=== PATIENT | male | born 1985 | race African-American/Black ===

== ENCOUNTER 2016-12-05 12:54 | Emergency (ER) | payer MEDICAID, OTHER ==
[~2016-12-05] VITALS: Ht 180.3 cm; Wt 120.0 kg
[~2016-12-05 12:54] MED LIST: LISI10TA5 PO; METF500T PO
[2016-12-05] MEDS ORDERED: SODIUM CHLORIDE 0.9% 1,000 ML IV ONE (14:22)
[2016-12-05] MEDS ORDERED: KETOROLAC 30MG/ML VIAL IV STA (14:22)
[2016-12-05] MEDS ORDERED: ONDANSETRON HCL 4MG/2ML VIAL IV STA (14:22)
[2016-12-05 14:56] LABS: BASOPHILS % 0.6 % (0.0-2.0); EOSINOPHILS % 0.1 % (0.0-5.0); HEMATOCRIT. 42.2 % (42.0-52.0); HEMOGLOBIN. 14.3 g/dL (14.0-18.0); LYMPHOCYTES % 10.2 % (20.0-50.0); MEAN CORPUSCULAR HEMOGLOBIN 30.4 pg (28.0-32.0); MEAN CORPUSCULAR VOLUME 89.4 fL (80.0-94.0); MEAN PLATELET VOLUME 8.9 fl (7.4-10.4); MONOCYTES % 2.8 % (2.0-8.0); NEUTROPHILS % 86.3 % (40.0-76.0); PLATELET 255 x1000/uL (130-400); RED BLOOD CELL COUNT 4.71 mill/uL (4.7-6.1); RED CELL DISTRIBUTION WIDTH 14.1 % (11.6-14.6); WHITE BLOOD COUNT 12.3 x1000/uL (4.5-11.0)
[2016-12-05 14:59] LABS: PROTHROMBIN TIME 10.3 sec
[2016-12-05 15:01] LABS: CHLORIDE 103 mEq/L (98-107); INDEX HEMOLYSI 1 (1-3); INDEX ICTERIC 1 (1-4); INDEX LIPEMIC 1 (1-3)
[2016-12-05 15:07] LABS: ALANINE AMINOTRANSFERASE 21 IU/L (13-61); ALBUMIN 4.2 g/dL (3.4-5.0); ANION GAP 17; CALCIUM 9.5 mg/dL (8.5-10.1); CARBON DIOXIDE 24 mEq/L (21-32); LIPASE 194 IU/L (73-393); UREA NITROGEN BLOOD 17 mg/dL (7-21); eGFR > 60 mL/min (>60)
[2016-12-05 15:47] VITALS: BP 172/98
[2016-12-05] MEDS ORDERED: MAGNESIUM/ALUMINUM HYDROXIDE/SIMETHICONE 30ML UDC PO ONE (16:00)
== END 2016-12-05 16:48 | disposition home or self-care (01) ==
LOC: ER 13:09
DX: R10.9 Unspecified abdominal pain (principal); E11.9 Type 2 diabetes mellitus without complications; I10 Essential (primary) hypertension; R11.2 Nausea with vomiting, unspecified; Z90.49 Acquired absence of other specified parts of digestive tract
CPT/HCPCS: 36415; 74176; 80053; 83690; 85025; 85610; 96361; 96374; 96375; 99285; J1885; J2405; J7030; Z7610

== ENCOUNTER 2018-09-06 12:26 | Inpatient (IN) | payer MEDICAID ==
[~2018-09-06] VITALS: Ht 185.4 cm; Wt 117.9 kg
[2018-09-06] MEDS ORDERED: ACETAMINOPHEN 325MG TABLET PO ONE (20:00)
[2018-09-06] MEDS ORDERED: MORPHINE SULFATE 4 MG/ML CPJ (NOT FOR IM USE) IV ONE ×2 (20:45→22:30)
[2018-09-06] MEDS ORDERED: CLONIDINE 0.1MG TABLET PO ONE (20:45)
[2018-09-06] MEDS ORDERED: SODIUM CHLORIDE 0.9% 500 ML IV ONE (20:45)
[2018-09-06 20:55] LABS: CHLORIDE 97 mEq/L (98-107)
[2018-09-06 20:59] LABS: BASOPHILS % 0.2 % (0.0-2.0); EOSINOPHILS % 0.2 % (0.0-5.0); HEMATOCRIT. 47.4 % (42.0-52.0); HEMOGLOBIN. 15.5 g/dL (14.0-18.0); LYMPHOCYTES % 19.8 % (20.0-50.0); MEAN CORPUSCULAR HEMOGLOBIN 30.1 pg (28.0-32.0); MEAN CORPUSCULAR VOLUME 91.9 fL (80.0-94.0); MEAN PLATELET VOLUME 9.7 fl (7.4-10.4); MONOCYTES % 6.5 % (2.0-8.0); NEUTROPHILS % 73.3 % (40.0-76.0); PLATELET 251 x1000/uL (130-400); RED BLOOD CELL COUNT 5.16 mill/uL (4.7-6.1); RED CELL DISTRIBUTION WIDTH 13.1 % (11.6-14.6)
[2018-09-06] MEDS ORDERED: INSULIN REGULAR (HUMULIN R) 300UNITS/3ML SUBCUT ONE (21:45)
[2018-09-06] MEDS ORDERED: CLONIDINE 0.2MG TABLET PO ONE (22:15)
[2018-09-06] MEDS ORDERED: MAGNESIUM/ALUMINUM HYDROXIDE/SIMETHICONE 30ML UDC PO PRN (23:45)
[2018-09-06] MEDS ORDERED: IPRATROPIUM/ALBUTEROL 0.5-3(2.5)MG/3ML NEB INH PRN (23:45)
[2018-09-06] MEDS ORDERED: DOCUSATE SODIUM 100MG CAPSULE PO PRN (23:45)
[2018-09-06] MEDS ORDERED: ACETAMINOPHEN 325MG TABLET PO PRN (23:45)
[2018-09-07 05:13] LABS: BASOPHILS % 0.2 % (0.0-2.0); EOSINOPHILS % 0.7 % (0.0-5.0); HEMATOCRIT. 41.4 % (42.0-52.0); HEMOGLOBIN. 13.7 g/dL (14.0-18.0); LYMPHOCYTES % 21.7 % (20.0-50.0); MEAN CORPUSCULAR HEMOGLOBIN 30.3 pg (28.0-32.0); MEAN CORPUSCULAR VOLUME 91.5 fL (80.0-94.0); MEAN PLATELET VOLUME 9.1 fl (7.4-10.4); MONOCYTES % 8.5 % (2.0-8.0); NEUTROPHILS % 68.9 % (40.0-76.0); PLATELET 227 x1000/uL (130-400); RED BLOOD CELL COUNT 4.53 mill/uL (4.7-6.1); RED CELL DISTRIBUTION WIDTH 13.1 % (11.6-14.6)
[2018-09-07 05:26] LABS: LDL CHOLESTEROL 140 mg/dL (5-100)
[2018-09-07 05:29] LABS: CREATINE KINASE 121 IU/L (39-308)
[2018-09-07 05:30] LABS: HDL CHOLESTEROL 34 mg/dL (40-59)
[2018-09-07 05:31] LABS: CREATINE KINASE MB FRACTION < 1.0 ng/mL (0.5-3.6)
[2018-09-07] MEDS: SODIUM CHLORIDE 0.9% 1,000 ML IV SCH ×2 (06:13→16:38)
[2018-09-07 06:51] LABS: CLARITY URINE CLEAR (CLEAR); COLOR URINE YELLOW (YELLOW); KETONES URINE 2+ (NEGATIVE); LEUKOCYTE ESTERASE URINE NEGATIVE (NEGATIVE); NITRITE URINE NEGATIVE (NEGATIVE); OCCULT BLOOD URINE NEGATIVE (NEGATIVE); PROTEIN URINE 2+ (NEGATIVE); SPECIFIC GRAVITY URINE 1.023 (1.005-1.030); UROBILINOGEN URINE 0.2 E.U./dL (0.2-1.0)
[2018-09-07 07:08] LABS: *AMPHETAMINES SCREEN URINE NEGATIVE (NEGATIVE); *BARBITURATES SCREEN URINE NEGATIVE (NEGATIVE); *BENZODIAZEPINES SCREEN URINE NEGATIVE (NEGATIVE); *COCAINE SCREEN URINE PRESUMTIVE POSITIVE (NEGATIVE); METHADONE URINE SCREEN NEGATIVE (NEGATIVE); OPIATES URINE SCREEN PRESUMTIVE POSITIVE (NEGATIVE)
[2018-09-07 07:09] LABS: CANNABINOID URINE SCREEN PRESUMTIVE POSITIVE (NEGATIVE); PHENCYCLIDINE URINE SCREEN NEGATIVE (NEGATIVE)
[2018-09-07] MEDS: INSULIN LISPRO (HIGH DOSE) 100 UNITS/ML SUBCUT SCH ×5 (07:09→21:11)
[2018-09-07] MEDS: BLOOD SUGAR DIAGNOSTIC STRIP TEST SCH ×5 (07:10→20:33)
[2018-09-07] MEDS ORDERED: DEXTROSE 50% WATER 50ML SYRINGE IV PRN (07:15)
[2018-09-07] MEDS: CLONIDINE 0.1MG TABLET PO PRN ×2 (09:30→17:29)
[2018-09-07] MEDS: MORPHINE SULFATE 4 MG/ML CPJ (NOT FOR IM USE) IV PRN ×2 (09:30→22:35)
[2018-09-07] MEDS: ENOXAPARIN 30MG/0.3ML SYR SUBCUT SCH ×2 (09:34→21:10)
[2018-09-07 12:00] VITALS: BP 159/105
[2018-09-07 16:00] VITALS: BP 159/105
[2018-09-07] MEDS: HYDROCODONE/ACETAMINOPHEN 5/325MG TABLET PO PRN (16:17)
[2018-09-07 16:46] VITALS: BP 159/103
[2018-09-07 17:22] LABS: CREATINE KINASE 110 IU/L (39-308)
[2018-09-07 17:23] LABS: CREATINE KINASE MB FRACTION < 1.0 ng/mL (0.5-3.6)
[2018-09-07] MEDS: FAMOTIDINE 20MG TABLET PO SCH (21:10)
[2018-09-07] MEDS: ATORVASTATIN CALCIUM 20MG TABLET PO SCH (21:10)
[2018-09-07] MEDS: AMLODIPINE 5MG TABLET PO SCH (21:10)
[2018-09-07] MEDS ORDERED: INSULIN GLARGINE UD 100 UNITS/ML SYR SUBCUT SCH (22:00)
[2018-09-08 00:16] VITALS: BP 131/98
[2018-09-08] MEDS: SODIUM CHLORIDE 0.9% 1,000 ML IV SCH ×2 (03:47→16:26)
[2018-09-08] MEDS: MORPHINE SULFATE 4 MG/ML CPJ (NOT FOR IM USE) IV PRN ×4 (03:47→20:38)
[2018-09-08 04:00] VITALS: BP 130/97
[2018-09-08] MEDS: BLOOD SUGAR DIAGNOSTIC STRIP TEST SCH ×4 (06:30→20:29)
[2018-09-08 07:10] LABS: CHLORIDE 104 mEq/L (98-107)
[2018-09-08 07:12] LABS: BASOPHILS % 0.4 % (0.0-2.0); EOSINOPHILS % 1.6 % (0.0-5.0); HEMATOCRIT. 38.8 % (42.0-52.0); HEMOGLOBIN. 12.9 g/dL (14.0-18.0); LYMPHOCYTES % 34.1 % (20.0-50.0); MEAN CORPUSCULAR HEMOGLOBIN 30.2 pg (28.0-32.0); MEAN CORPUSCULAR VOLUME 91.1 fL (80.0-94.0); MEAN PLATELET VOLUME 9.6 fl (7.4-10.4); MONOCYTES % 8.6 % (2.0-8.0); NEUTROPHILS % 55.3 % (40.0-76.0); PLATELET 225 x1000/uL (130-400); RED BLOOD CELL COUNT 4.26 mill/uL (4.7-6.1); RED CELL DISTRIBUTION WIDTH 13.3 % (11.6-14.6)
[2018-09-08 08:00] VITALS: BP 157/106
[2018-09-08] MEDS: INSULIN LISPRO (HIGH DOSE) 100 UNITS/ML SUBCUT SCH ×3 (08:37→20:36)
[2018-09-08] MEDS: AMLODIPINE 5MG TABLET PO SCH ×2 (08:39→20:37)
[2018-09-08] MEDS: ENOXAPARIN 30MG/0.3ML SYR SUBCUT SCH ×2 (08:39→20:37)
[2018-09-08] MEDS: HYDROCODONE/ACETAMINOPHEN 5/325MG TABLET PO PRN ×2 (08:40→19:38)
[2018-09-08 12:00] VITALS: BP 173/132
[2018-09-08] MEDS: CLONIDINE 0.1MG TABLET PO PRN (12:51)
[2018-09-08 16:00] VITALS: BP 164/121
[2018-09-08 20:00] VITALS: BP 159/113
[2018-09-08] MEDS: FAMOTIDINE 20MG TABLET PO SCH (20:37)
[2018-09-08] MEDS: ATORVASTATIN CALCIUM 20MG TABLET PO SCH (20:37)
[2018-09-08] MEDS: INSULIN GLARGINE UD 100 UNITS/ML SYR SUBCUT SCH (23:35)
[2018-09-09] VITALS (7 sets, daily range): BP systolic 139–163; BP diastolic 85–105
[2018-09-09] MEDS: MORPHINE SULFATE 4 MG/ML CPJ (NOT FOR IM USE) IV PRN ×3 (02:45→20:03)
[2018-09-09] MEDS: SODIUM CHLORIDE 0.9% 1,000 ML IV SCH ×2 (02:46→17:43)
[2018-09-09 06:34] LABS: CHLORIDE 103 mEq/L (98-107)
[2018-09-09] MEDS: BLOOD SUGAR DIAGNOSTIC STRIP TEST SCH ×4 (06:44→20:37)
[2018-09-09 06:58] LABS: BASOPHILS % 0.3 % (0.0-2.0); EOSINOPHILS % 1.9 % (0.0-5.0); HEMATOCRIT. 37.4 % (42.0-52.0); HEMOGLOBIN. 12.6 g/dL (14.0-18.0); LYMPHOCYTES % 38.4 % (20.0-50.0); MEAN CORPUSCULAR HEMOGLOBIN 30.6 pg (28.0-32.0); MEAN CORPUSCULAR VOLUME 90.7 fL (80.0-94.0); MEAN PLATELET VOLUME 9.3 fl (7.4-10.4); MONOCYTES % 8.1 % (2.0-8.0); NEUTROPHILS % 51.3 % (40.0-76.0); PLATELET 235 x1000/uL (130-400); RED BLOOD CELL COUNT 4.13 mill/uL (4.7-6.1); RED CELL DISTRIBUTION WIDTH 12.8 % (11.6-14.6)
[2018-09-09] MEDS: INSULIN LISPRO (HIGH DOSE) 100 UNITS/ML SUBCUT SCH ×4 (08:10→20:37)
[2018-09-09] MEDS: AMLODIPINE 5MG TABLET PO SCH ×2 (08:59→20:02)
[2018-09-09] MEDS: ENOXAPARIN 30MG/0.3ML SYR SUBCUT SCH ×2 (12:30→20:47)
[2018-09-09] MEDS: ATORVASTATIN CALCIUM 20MG TABLET PO SCH (20:02)
[2018-09-09] MEDS: FAMOTIDINE 20MG TABLET PO SCH (20:46)
[2018-09-09] MEDS: INSULIN GLARGINE UD 100 UNITS/ML SYR SUBCUT SCH (20:46)
[2018-09-10] VITALS: BP 150/104
[2018-09-10] MEDS: SODIUM CHLORIDE 0.9% 1,000 ML IV SCH ×2 (00:12→11:19)
[2018-09-10] MEDS: MORPHINE SULFATE 4 MG/ML CPJ (NOT FOR IM USE) IV PRN ×5 (00:23→21:55)
[2018-09-10 04:00] VITALS: BP 152/105
[2018-09-10 06:51] LABS: BASOPHILS % 0.4 % (0.0-2.0); EOSINOPHILS % 1.9 % (0.0-5.0); HEMATOCRIT. 38.5 % (42.0-52.0); HEMOGLOBIN. 12.7 g/dL (14.0-18.0); MEAN CORPUSCULAR HEMOGLOBIN 29.9 pg (28.0-32.0); MEAN CORPUSCULAR VOLUME 90.5 fL (80.0-94.0); MEAN PLATELET VOLUME 9.2 fl (7.4-10.4); NEUTROPHILS % 56.7 % (40.0-76.0); PLATELET 250 x1000/uL (130-400); RED BLOOD CELL COUNT 4.25 mill/uL (4.7-6.1); RED CELL DISTRIBUTION WIDTH 12.8 % (11.6-14.6)
[2018-09-10 07:17] LABS: CHLORIDE 105 mEq/L (98-107)
[2018-09-10] MEDS: BLOOD SUGAR DIAGNOSTIC STRIP TEST SCH ×4 (07:31→20:53)
[2018-09-10] MEDS: INSULIN LISPRO (HIGH DOSE) 100 UNITS/ML SUBCUT SCH ×4 (07:51→20:53)
[2018-09-10 08:00] VITALS: BP 163/100
[2018-09-10] MEDS: CLONIDINE 0.1MG TABLET PO PRN (08:15)
[2018-09-10] MEDS: ENOXAPARIN 30MG/0.3ML SYR SUBCUT SCH ×2 (09:00→20:53)
[2018-09-10] MEDS: AMLODIPINE 5MG TABLET PO SCH ×2 (09:00→20:52)
[2018-09-10] MEDS ORDERED: BUPIVACAINE HCL/PF 0.25% (2.5MG/ML) 10ML ONE (11:00)
[2018-09-10] MEDS ORDERED: VANCOMYCIN HCL 500 MG/VIAL ONE (11:01)
[2018-09-10] MEDS ORDERED: BACITRACIN 50,000 UNITS/VIAL ONE (11:01)
[2018-09-10] MEDS ORDERED: NORMAL SALINE 0.9% 10 ML SYR ONE (11:01)
[2018-09-10] MEDS ORDERED: FENTANYL CITRATE/PF 50MCG/ML 2ML VIAL ONE ×3 (11:31→13:30)
[2018-09-10] MEDS ORDERED: MIDAZOLAM HCL 2 MG/2 ML VIAL ONE (11:31)
[2018-09-10] MEDS ORDERED: PROPOFOL 200MG/20ML VIAL IV ONE (11:31)
[2018-09-10] MEDS ORDERED: LIDOCAINE HCL/PF 1% 10 MG/ML 5ML VIAL ONE (11:31)
[2018-09-10] MEDS ORDERED: CEFAZOLIN SODIUM 1000MG/VIAL ONE (11:32)
[2018-09-10] MEDS ORDERED: ROCURONIUM BROMIDE 10MG/ML VIAL 5ML IV ONE (11:52)
[2018-09-10] MEDS ORDERED: ONDANSETRON HCL 4MG/2ML INJ ONE (12:39)
[2018-09-10] MEDS: HYDROMORPHONE HCL/PF 2MG/ML CPJ IV PRN ×4 (13:08→13:23)
[2018-09-10] MEDS ORDERED: HYDROMORPHONE HCL/PF 2MG/ML CPJ ONE (13:14)
[2018-09-10] MEDS ORDERED: BUPIVACAINE HCL/PF 0.5% (5MG/ML) 10ML ONE (13:17)
[2018-09-10] MEDS: FENTANYL CITRATE/PF 50MCG/ML 2ML VIAL IV PRN ×2 (13:23→13:33)
[2018-09-10] MEDS ORDERED: MIDAZOLAM HCL 5 MG/5 ML VIAL ONE (13:33)
[2018-09-10] MEDS ORDERED: MIDAZOLAM HCL 5 MG/5 ML VIAL IV SCH (13:45)
[2018-09-10] MEDS ORDERED: MEPERIDINE HCL/PF 25MG/ML CPJ IV PRN (13:45)
[2018-09-10] MEDS ORDERED: KETOROLAC 30MG/ML VIAL IV PRN (13:45)
[2018-09-10] MEDS ORDERED: HYDROMORPHONE HCL/PF 2MG/ML CPJ IV PRN (13:45)
[2018-09-10] MEDS ORDERED: METOCLOPRAMIDE HCL 10MG/2ML VIAL IV PRN (13:45)
[2018-09-10] MEDS ORDERED: CEFAZOLIN SODIUM 1000MG/VIAL IV SCH (14:00)
[2018-09-10 16:00] VITALS: BP 152/95
[2018-09-10] MEDS: CEFAZOLIN 1000MG PREMIX 50 ML IV SCH (16:08)
[2018-09-10] MEDS: ONDANSETRON HCL 4MG/2ML INJ IV PRN (19:29)
[2018-09-10 20:00] VITALS: BP 144/89
[2018-09-10] MEDS: FAMOTIDINE 20MG TABLET PO SCH (20:52)
[2018-09-10] MEDS: ATORVASTATIN CALCIUM 20MG TABLET PO SCH (20:52)
[2018-09-10] MEDS: INSULIN GLARGINE UD 100 UNITS/ML SYR SUBCUT SCH (20:54)
[2018-09-11] VITALS: BP 155/100
[2018-09-11] MEDS: SODIUM CHLORIDE 0.9% 1,000 ML IV SCH ×3 (00:04→23:50)
[2018-09-11] MEDS: CEFAZOLIN 1000MG PREMIX 50 ML IV SCH ×2 (00:05→08:34)
[2018-09-11] MEDS: MORPHINE SULFATE 4 MG/ML CPJ (NOT FOR IM USE) IV PRN ×6 (02:23→23:51)
[2018-09-11] MEDS: ONDANSETRON HCL 4MG/2ML INJ IV PRN (02:23)
[2018-09-11 04:00] VITALS: BP 154/92
[2018-09-11] MEDS: BLOOD SUGAR DIAGNOSTIC STRIP TEST SCH ×4 (06:57→21:11)
[2018-09-11 08:00] VITALS: BP 157/94
[2018-09-11] MEDS: INSULIN LISPRO (HIGH DOSE) 100 UNITS/ML SUBCUT SCH ×4 (08:10→21:12)
[2018-09-11] MEDS: AMLODIPINE 5MG TABLET PO SCH ×2 (08:32→21:11)
[2018-09-11] MEDS: ENOXAPARIN 30MG/0.3ML SYR SUBCUT SCH ×2 (08:32→21:11)
[2018-09-11] MEDS: HYDROCODONE/ACETAMINOPHEN 5/325MG TABLET PO PRN ×4 (08:34→21:55)
[2018-09-11 08:51] LABS: BASOPHILS % 0.2 % (0.0-2.0); EOSINOPHILS % 0.2 % (0.0-5.0); HEMATOCRIT. 37.3 % (42.0-52.0); HEMOGLOBIN. 12.4 g/dL (14.0-18.0); LYMPHOCYTES % 14.9 % (20.0-50.0); MEAN CORPUSCULAR HEMOGLOBIN 30.2 pg (28.0-32.0); MEAN CORPUSCULAR VOLUME 91.1 fL (80.0-94.0); MEAN PLATELET VOLUME 9.3 fl (7.4-10.4); NEUTROPHILS % 76.7 % (40.0-76.0); PLATELET 266 x1000/uL (130-400); RED CELL DISTRIBUTION WIDTH 12.9 % (11.6-14.6)
[2018-09-11 09:28] LABS: CHLORIDE 104 mEq/L (98-107)
[2018-09-11 12:00] VITALS: BP 146/94
[2018-09-11 16:00] VITALS: BP 136/93
[2018-09-11 20:00] VITALS: BP 152/87
[2018-09-11] MEDS: FAMOTIDINE 20MG TABLET PO SCH (21:11)
[2018-09-11] MEDS: ATORVASTATIN CALCIUM 20MG TABLET PO SCH (21:11)
[2018-09-11] MEDS: INSULIN GLARGINE UD 100 UNITS/ML SYR SUBCUT SCH (21:12)
[2018-09-12] VITALS: BP 148/78
[2018-09-12 03:53] VITALS: BP 156/99
[2018-09-12] MEDS: MORPHINE SULFATE 4 MG/ML CPJ (NOT FOR IM USE) IV PRN ×4 (03:54→16:45)
[2018-09-12] MEDS: HYDROCODONE/ACETAMINOPHEN 5/325MG TABLET PO PRN ×2 (06:04→14:24)
[2018-09-12] MEDS: BLOOD SUGAR DIAGNOSTIC STRIP TEST SCH ×3 (07:33→16:47)
[2018-09-12] MEDS: SODIUM CHLORIDE 0.9% 1,000 ML IV SCH (08:38)
[2018-09-12 08:48] VITALS: BP 140/96
[2018-09-12] MEDS: INSULIN LISPRO (HIGH DOSE) 100 UNITS/ML SUBCUT SCH ×3 (08:55→17:22)
[2018-09-12] MEDS: AMLODIPINE 5MG TABLET PO SCH (09:09)
[2018-09-12] MEDS: ENOXAPARIN 30MG/0.3ML SYR SUBCUT SCH (09:09)
[2018-09-12 12:31] VITALS: BP 167/102
[2018-09-12] MEDS ORDERED: DOCUSATE SODIUM 250MG CAPSULE PO SCH (14:30)
[2018-09-12] MEDS ORDERED: LOSARTAN POTASSIUM 50 MG TABLET PO SCH (14:30)
[2018-09-12 16:06] VITALS: BP 159/99
[2018-09-12 16:45] VITALS: BP 159/99
== END 2018-09-12 17:46 | disposition home or self-care (01) | DRG 315 ==
LOC: ER 14:23 → 7WST 21:34 → EDBEDREQSVC 21:40 → EDBEDREQTM 21:40 → EDBEDREQ 21:40 → ENRESERV 09-07 08:40
PROVIDERS: ADMIT Internal Medicine; ATTEND Internal Medicine
PROC: 0PSH04Z Reposition Right Radius with Internal Fixation Device, Open Approach (ICD-10-PCS; principal; 2018-09-10)
DX: S52.501A Unspecified fracture of the lower end of right radius, initial encounter for closed fracture (principal); N17.9 Acute kidney failure, unspecified; E11.65 Type 2 diabetes mellitus with hyperglycemia; E87.1 Hypo-osmolality and hyponatremia; I16.0 Hypertensive urgency; K21.9 Gastro-esophageal reflux disease without esophagitis; F11.90 Opioid use, unspecified, uncomplicated; F14.90 Cocaine use, unspecified, uncomplicated; F12.90 Cannabis use, unspecified, uncomplicated; E78.5 Hyperlipidemia, unspecified; I10 Essential (primary) hypertension; W01.0XXA Fall on same level from slipping, tripping and stumbling without subsequent striking against object, initial encounter; Y93.89 Activity, other specified; Y99.8 Other external cause status; Y92.098 Other place in other non-institutional residence as the place of occurrence of the external cause; Z59.0 Homelessness; Z79.84 Long term (current) use of oral hypoglycemic drugs; Z90.49 Acquired absence of other specified parts of digestive tract; Z91.14 Patient's other noncompliance with medication regimen; Z79.899 Other long term (current) drug therapy
CPT/HCPCS: 36415; 71045; 73100; 73110; 73130; 76000; 76770; 80048; 80061; 80305; 82550; 82553; 82962; 83036; 83735; 83880; 84443; 84484; 93005; 93306; 93970; 96361; 96372; 96374; 99285; C1713; J0690; J1170; J1650; J1815; J1885; J2250; J2270; J2405; J2704; J3010; J3370; J3490; J7040

== ENCOUNTER 2019-12-09 05:47 | Inpatient (IN) | payer MEDICAID ==
[~2019-12-09] VITALS: Ht 190.5 cm; Wt 110.7 kg
[~2019-12-09 05:47] MED LIST changes: +CLON0.1T MT; +INSU100I28 SQ; -LISI10TA5 PO; +NEOAPJ IM
[2019-12-09] MEDS ORDERED: SODIUM CHLORIDE 0.9% 1,000 ML IV ONE (06:22)
[2019-12-09 06:27] LABS: BG BASE EXCESS 0.6 mmol/L (-2.0-2.0); BG CARBOXYHEMOGLOBIN 2.6 % (0.5-1.5); BG DEOXYHEMOGLOBIN 3.1 % (0.0-5.0); BG FRACTION INSPIRED OXYGEN 21; BG HCO3 ACT 24.1 mmol/L (22.0-26.0); BG METHEMOGLOBIN 0.1 % (0.0-1.5); BG OXYGEN SATURATION 96.8 % (92.0-98.5); BG OXYHEMOGLOBIN 94.2 % (94.0-97.0); BG PCO2 35.6 mmHg (35.0-45.0); BG PH 7.449 (7.350-7.450); BG PO2 87.3 mmHg (75.0-100.0); BG SAMPLE SITE RIGHT RADIAL; BG TOTAL HEMOGLOBIN 14.5 g/dL (12.0-18.0); BG VENT MODE ROOM AIR
[2019-12-09 06:28] LABS: CHLORIDE 102 mEq/L (98-107)
[2019-12-09 06:30] LABS: BASOPHILS % 0.3 % (0.0-2.0); EOSINOPHILS % 0.4 % (0.0-5.0); HEMATOCRIT. 42.3 % (42.0-52.0); HEMOGLOBIN. 14.2 g/dL (14.0-18.0); MEAN CORPUSCULAR HEMOGLOBIN 30.4 pg (28.0-32.0); MEAN CORPUSCULAR VOLUME 90.4 fL (80.0-94.0); MEAN PLATELET VOLUME 9.1 fl (7.4-10.4); NEUTROPHILS % 83.3 % (40.0-76.0); PLATELET 256 x1000/uL (130-400); RED BLOOD CELL COUNT 4.68 mill/uL (4.7-6.1); RED CELL DISTRIBUTION WIDTH 13.5 % (11.6-14.6)
[2019-12-09] MEDS ORDERED: ONDANSETRON HCL 4MG/2ML INJ IV ONE (06:30)
[2019-12-09 06:34] LABS: BETA HYDROXYBUTYRATE 1.4 mMol/L (0.0-0.3)
[2019-12-09] MEDS ORDERED: INSULIN REGULAR (HUMULIN R) 300UNITS/3ML IV ONE (06:45)
[2019-12-09] MEDS ORDERED: MORPHINE SULFATE 4 MG/ML CPJ (NOT FOR IM USE) IV ONE (07:45)
[2019-12-09] MEDS ORDERED: IPRATROPIUM/ALBUTEROL 0.5-3(2.5)MG/3ML NEB HHN PRN (10:00)
[2019-12-09] MEDS ORDERED: INSULIN REGULAR (HUMULIN R) 300UNITS/3ML SUBCUT NR (10:00)
[2019-12-09] MEDS: SODIUM CHLORIDE 0.9% 1,000 ML IV SCH ×2 (10:30→22:49)
[2019-12-09 10:57] LABS: PHOSPHORUS 2.6 mg/dL (2.5-4.9)
[2019-12-09] MEDS: CLONIDINE 0.1MG TABLET PO PRN ×2 (12:16→21:31)
[2019-12-09] MEDS: ENOXAPARIN 30MG/0.3ML SYR SUBCUT SCH (13:14)
[2019-12-09] MEDS: ONDANSETRON HCL 4MG/2ML INJ IV PRN ×2 (13:14→17:51)
[2019-12-09] MEDS: HYDROCHLOROTHIAZIDE 25MG TABLET PO SCH (16:11)
[2019-12-09] MEDS: ACETAMINOPHEN 325MG TABLET PO PRN ×2 (17:51→21:31)
[2019-12-09 17:52] VITALS: BP 216/130
[2019-12-09 20:00] VITALS: BP 165/85
[2019-12-10] VITALS: BP 159/89
[2019-12-10] MEDS ORDERED: DEXTROSE 50% WATER 50ML SYRINGE IV PRN (00:45)
[2019-12-10] MEDS: ENOXAPARIN 30MG/0.3ML SYR SUBCUT SCH ×3 (01:02→20:47)
[2019-12-10] MEDS: ONDANSETRON HCL 4MG/2ML INJ IV PRN ×3 (01:03→17:33)
[2019-12-10] MEDS: SODIUM CHLORIDE 0.9% 1,000 ML IV SCH ×2 (01:50→09:11)
[2019-12-10] MEDS: ACETAMINOPHEN 325MG TABLET PO PRN (02:06)
[2019-12-10 04:00] VITALS: BP 180/95
[2019-12-10] MEDS: CLONIDINE 0.1MG TABLET PO PRN ×2 (04:51→12:47)
[2019-12-10] MEDS: BLOOD SUGAR DIAGNOSTIC STRIP TEST SCH ×4 (06:12→20:47)
[2019-12-10] MEDS: INSULIN LISPRO 100 UNITS/ML SUBCUT SCH ×4 (06:43→22:51)
[2019-12-10 07:25] LABS: BASOPHILS % 0.5 % (0.0-2.0); HEMATOCRIT. 44.2 % (42.0-52.0); HEMOGLOBIN. 14.7 g/dL (14.0-18.0); LYMPHOCYTES % 8.9 % (20.0-50.0); MEAN CORPUSCULAR HEMOGLOBIN 30.3 pg (28.0-32.0); MEAN CORPUSCULAR VOLUME 90.8 fL (80.0-94.0); MEAN PLATELET VOLUME 10.1 fl (7.4-10.4); NEUTROPHILS % 87.6 % (40.0-76.0); PLATELET 269 x1000/uL (130-400); RED BLOOD CELL COUNT 4.87 mill/uL (4.7-6.1); RED CELL DISTRIBUTION WIDTH 13.7 % (11.6-14.6)
[2019-12-10 07:34] LABS: CHLORIDE 100 mEq/L (98-107)
[2019-12-10 07:40] LABS: LDL CHOLESTEROL 189 mg/dL (5-100)
[2019-12-10 07:41] LABS: HDL CHOLESTEROL 44 mg/dL (40-59)
[2019-12-10 08:00] VITALS: BP 202/115
[2019-12-10] MEDS: METFORMIN HCL 500MG TABLET PO SCH ×3 (09:08→17:19)
[2019-12-10] MEDS: HYDROCHLOROTHIAZIDE 25MG TABLET PO SCH (09:08)
[2019-12-10] MEDS: MORPHINE SULFATE 2 MG/ML CPJ (NOT FOR IM USE) IV PRN ×4 (09:12→22:51)
[2019-12-10 12:00] VITALS: BP 168/121
[2019-12-10 16:00] VITALS: BP 151/87
[2019-12-10] MEDS ORDERED: HYDRALAZINE 10 MG in SODIUM CHLORIDE 0.9% 49.5 ML IV SCH (16:00)
[2019-12-10 20:00] VITALS: BP 146/84
[2019-12-10] MEDS ORDERED: INSULIN GLARGINE UD 100 UNITS/ML SYR SUBCUT SCH (22:00)
[2019-12-11] VITALS: BP 153/86
[2019-12-11] MEDS: MORPHINE SULFATE 2 MG/ML CPJ (NOT FOR IM USE) IV PRN ×5 (03:27→23:10)
[2019-12-11 04:00] VITALS: BP 180/91
[2019-12-11] MEDS: CLONIDINE 0.1MG TABLET PO PRN ×3 (05:25→21:15)
[2019-12-11 06:16] LABS: CHLORIDE 95 mEq/L (98-107)
[2019-12-11 06:21] LABS: BASOPHILS % 0.3 % (0.0-2.0); HEMATOCRIT. 43.8 % (42.0-52.0); HEMOGLOBIN. 14.6 g/dL (14.0-18.0); LYMPHOCYTES % 10.3 % (20.0-50.0); MEAN CORPUSCULAR HEMOGLOBIN 30.6 pg (28.0-32.0); MEAN CORPUSCULAR VOLUME 91.6 fL (80.0-94.0); MEAN PLATELET VOLUME 10.3 fl (7.4-10.4); MONOCYTES % 4.7 % (2.0-8.0); NEUTROPHILS % 84.7 % (40.0-76.0); PLATELET 269 x1000/uL (130-400); RED BLOOD CELL COUNT 4.78 mill/uL (4.7-6.1); RED CELL DISTRIBUTION WIDTH 13.7 % (11.6-14.6)
[2019-12-11] MEDS: BLOOD SUGAR DIAGNOSTIC STRIP TEST SCH ×4 (07:06→21:14)
[2019-12-11] MEDS ORDERED: POTASSIUM CHLORIDE 20MEQ TABLET SR PO SCH (07:30)
[2019-12-11 08:00] VITALS: BP 150/90
[2019-12-11] MEDS: HYDROCHLOROTHIAZIDE 25MG TABLET PO SCH (08:21)
[2019-12-11] MEDS: METFORMIN HCL 500MG TABLET PO SCH ×2 (08:21→18:04)
[2019-12-11] MEDS: INSULIN LISPRO 100 UNITS/ML SUBCUT SCH ×4 (08:23→21:26)
[2019-12-11] MEDS: SODIUM CHLORIDE 0.9% 1,000 ML IV SCH ×2 (09:50→18:25)
[2019-12-11 12:00] VITALS: BP 184/96
[2019-12-11] MEDS: ENOXAPARIN 30MG/0.3ML SYR SUBCUT SCH (12:58)
[2019-12-11] MEDS: ONDANSETRON HCL 4MG/2ML INJ IV PRN ×2 (13:28→21:26)
[2019-12-11 16:00] VITALS: BP 148/110
[2019-12-11] MEDS ORDERED: ATOR20TA MT (16:59)
[2019-12-11 20:00] VITALS: BP 187/112
[2019-12-11] MEDS: INSULIN GLARGINE UD 100 UNITS/ML SYR SUBCUT SCH (22:00)
[2019-12-12] VITALS: BP_SYST 141; BP_SYST 177; BP_DIAS 117; BP_DIAS 82
[2019-12-12] MEDS: ENOXAPARIN 30MG/0.3ML SYR SUBCUT SCH ×2 (00:54→13:01)
[2019-12-12] MEDS: HYDRALAZINE 10 MG in SODIUM CHLORIDE 0.9% 49.5 ML IV PRN (00:54)
[2019-12-12] MEDS: MORPHINE SULFATE 2 MG/ML CPJ (NOT FOR IM USE) IV PRN ×2 (03:16→09:20)
[2019-12-12] MEDS: CLONIDINE 0.1MG TABLET PO PRN (03:22)
[2019-12-12] MEDS: ONDANSETRON HCL 4MG/2ML INJ IV PRN (03:30)
[2019-12-12 04:00] VITALS: BP 187/110
[2019-12-12] MEDS: BLOOD SUGAR DIAGNOSTIC STRIP TEST SCH ×4 (06:11→21:26)
[2019-12-12 08:00] VITALS: BP 165/102
[2019-12-12] MEDS: METFORMIN HCL 500MG TABLET PO SCH ×2 (09:11→17:34)
[2019-12-12] MEDS: HYDROCHLOROTHIAZIDE 25MG TABLET PO SCH (09:11)
[2019-12-12] MEDS: INSULIN LISPRO 100 UNITS/ML SUBCUT SCH ×5 (09:50→21:00)
[2019-12-12] MEDS: INSULIN GLARGINE UD 100 UNITS/ML SYR SUBCUT SCH ×2 (09:50→21:31)
[2019-12-12] MEDS: SODIUM CHLORIDE 0.9% 1,000 ML IV SCH (09:50)
[2019-12-12] MEDS ORDERED: CLONIDINE 0.1MG TABLET PO NR (11:15)
[2019-12-12 12:00] VITALS: BP 168/104
[2019-12-12] MEDS ORDERED: IOHEXOL-300 100 ML BOTTLE ONE (13:53)
[2019-12-12] MEDS: CLONIDINE 0.1MG TABLET PO SCH ×2 (15:24→21:27)
[2019-12-12 16:00] VITALS: BP 150/89
[2019-12-12] MEDS: METOCLOPRAMIDE HCL 10MG/2ML VIAL IV SCH ×2 (17:34→23:51)
[2019-12-12] MEDS ORDERED: KETOROLAC 30MG/ML VIAL IV PRN (18:00)
[2019-12-12] MEDS: HYDROCODONE/ACETAMINOPHEN 5/325MG TABLET PO PRN (18:17)
[2019-12-12 20:00] VITALS: BP 134/78
[2019-12-13] VITALS (7 sets, daily range): BP systolic 105–171; BP diastolic 56–114
[2019-12-13 00:51] LABS: *COCAINE SCREEN URINE NEGATIVE (NEGATIVE); METHADONE URINE SCREEN NEGATIVE (NEGATIVE)
[2019-12-13 00:52] LABS: *AMPHETAMINES SCREEN URINE NEGATIVE (NEGATIVE); *BARBITURATES SCREEN URINE NEGATIVE (NEGATIVE); CANNABINOID URINE SCREEN PRESUMTIVE POSITIVE (NEGATIVE); OPIATES URINE SCREEN PRESUMTIVE POSITIVE (NEGATIVE); PHENCYCLIDINE URINE SCREEN NEGATIVE (NEGATIVE)
[2019-12-13 00:53] LABS: *BENZODIAZEPINES SCREEN URINE NEGATIVE (NEGATIVE)
[2019-12-13] MEDS: CLONIDINE 0.1MG TABLET PO SCH ×3 (05:26→22:05)
[2019-12-13] MEDS: METOCLOPRAMIDE HCL 10MG/2ML VIAL IV SCH ×3 (05:26→18:00)
[2019-12-13] MEDS: BLOOD SUGAR DIAGNOSTIC STRIP TEST SCH ×4 (06:00→21:00)
[2019-12-13] MEDS: INSULIN LISPRO 100 UNITS/ML SUBCUT SCH ×7 (07:50→21:00)
[2019-12-13 08:32] LABS: BASOPHILS % 0.2 % (0.0-2.0); EOSINOPHILS % 0.2 % (0.0-5.0); HEMATOCRIT. 44.5 % (42.0-52.0); HEMOGLOBIN. 15.2 g/dL (14.0-18.0); LYMPHOCYTES % 18.5 % (20.0-50.0); MEAN CORPUSCULAR HEMOGLOBIN 30.7 pg (28.0-32.0); MEAN PLATELET VOLUME 9.8 fl (7.4-10.4); MONOCYTES % 7.9 % (2.0-8.0); NEUTROPHILS % 73.2 % (40.0-76.0); PLATELET 262 x1000/uL (130-400); RED BLOOD CELL COUNT 4.94 mill/uL (4.7-6.1); RED CELL DISTRIBUTION WIDTH 13.3 % (11.6-14.6)
[2019-12-13 08:38] LABS: CHLORIDE 97 mEq/L (98-107)
[2019-12-13] MEDS: METFORMIN HCL 500MG TABLET PO SCH ×2 (08:51→18:08)
[2019-12-13] MEDS: HYDROCHLOROTHIAZIDE 25MG TABLET PO SCH (08:51)
[2019-12-13] MEDS: ONDANSETRON HCL 4MG/2ML INJ IV PRN (10:13)
[2019-12-13] MEDS: INSULIN GLARGINE UD 100 UNITS/ML SYR SUBCUT SCH ×2 (10:19→22:07)
[2019-12-13] MEDS: ENOXAPARIN 30MG/0.3ML SYR SUBCUT SCH ×2 (12:47)
[2019-12-13] MEDS: HYDRALAZINE 10 MG in SODIUM CHLORIDE 0.9% 49.5 ML IV PRN (14:16)
[2019-12-13] MEDS: HYDROCODONE/ACETAMINOPHEN 5/325MG TABLET PO PRN (22:04)
[2019-12-14] VITALS: BP 147/89
[2019-12-14] MEDS: ENOXAPARIN 30MG/0.3ML SYR SUBCUT SCH ×2 (02:28→13:12)
[2019-12-14 04:00] VITALS: BP 130/94
[2019-12-14] MEDS: METOCLOPRAMIDE HCL 10MG/2ML VIAL IV SCH ×4 (06:00→17:22)
[2019-12-14] MEDS: CLONIDINE 0.1MG TABLET PO SCH ×3 (06:11→21:44)
[2019-12-14] MEDS: BLOOD SUGAR DIAGNOSTIC STRIP TEST SCH ×4 (07:20→21:00)
[2019-12-14] MEDS ORDERED: SODIUM BICARBONATE 4% (2.4MEQ) 5ML VIAL IV ONE (07:46)
[2019-12-14] MEDS ORDERED: LIDOCAINE HCL 1% 20ML VIAL (Pyxis) INJ ONE (07:47)
[2019-12-14 08:00] VITALS: BP 173/108
[2019-12-14] MEDS: METFORMIN HCL 500MG TABLET PO SCH ×2 (09:44→17:22)
[2019-12-14] MEDS: HYDROCHLOROTHIAZIDE 25MG TABLET PO SCH (09:45)
[2019-12-14] MEDS: CLONIDINE 0.1MG TABLET PO PRN ×2 (09:46→17:24)
[2019-12-14] MEDS: INSULIN LISPRO 100 UNITS/ML SUBCUT SCH ×7 (10:28→22:10)
[2019-12-14] MEDS: INSULIN GLARGINE UD 100 UNITS/ML SYR SUBCUT SCH ×3 (10:41→22:10)
[2019-12-14 12:00] VITALS: BP 127/96
[2019-12-14] MEDS ORDERED: CLON0.1T MT (13:04)
[2019-12-14] MEDS ORDERED: INSU100I28 SQ (13:04)
[2019-12-14] MEDS ORDERED: METF-416 MT (13:04)
[2019-12-14] MEDS: HYDROCODONE/ACETAMINOPHEN 5/325MG TABLET PO PRN (15:26)
[2019-12-14 16:00] VITALS: BP 129/109
[2019-12-14 20:00] VITALS: BP 135/97
[2019-12-15] VITALS: BP 155/94
[2019-12-15] MEDS: ENOXAPARIN 30MG/0.3ML SYR SUBCUT SCH ×2 (01:16→12:26)
[2019-12-15 04:00] VITALS: BP 141/104
[2019-12-15] MEDS: CLONIDINE 0.1MG TABLET PO SCH ×2 (05:37→14:39)
[2019-12-15] MEDS: METOCLOPRAMIDE HCL 10MG/2ML VIAL IV SCH ×3 (06:00→12:00)
[2019-12-15] MEDS: BLOOD SUGAR DIAGNOSTIC STRIP TEST SCH ×2 (06:38→12:24)
[2019-12-15 08:00] VITALS: BP 165/108
[2019-12-15] MEDS: HYDROCHLOROTHIAZIDE 25MG TABLET PO SCH (08:34)
[2019-12-15] MEDS: METFORMIN HCL 500MG TABLET PO SCH (08:34)
[2019-12-15] MEDS: INSULIN LISPRO 100 UNITS/ML SUBCUT SCH ×4 (08:40→12:24)
[2019-12-15] MEDS: CLONIDINE 0.1MG TABLET PO PRN (08:41)
[2019-12-15] MEDS: HYDROCODONE/ACETAMINOPHEN 5/325MG TABLET PO PRN (08:44)
[2019-12-15 16:00] VITALS: BP 143/99
[2019-12-15 16:23] VITALS: BP 143/99
== END 2019-12-15 16:59 | disposition home or self-care (01) | DRG 282 ==
LOC: ER 05:47 → 6EST 09:03 → ENRESERV 13:12 → 6EST 12-10 13:20
PROVIDERS: ADMIT Internal Medicine; ATTEND Internal Medicine
PROC: 02HV33Z Insertion of Infusion Device into Superior Vena Cava, Percutaneous Approach (ICD-10-PCS; principal; 2019-12-14)
PROC: B548ZZA Ultrasonography of Superior Vena Cava, Guidance (ICD-10-PCS; 2019-12-14)
PROC: B5181ZA Fluoroscopy of Superior Vena Cava using Low Osmolar Contrast, Guidance (ICD-10-PCS; 2019-12-14)
PROC: 0JBQ0ZZ Excision of Right Foot Subcutaneous Tissue and Fascia, Open Approach (ICD-10-PCS; 2019-12-14)
PROC: 0HDNXZZ Extraction of Left Foot Skin, External Approach (ICD-10-PCS; 2019-12-14)
PROC: 0HDNXZZ Extraction of Left Foot Skin, External Approach (ICD-10-PCS; 2019-12-14)
PROC: 0HDMXZZ Extraction of Right Foot Skin, External Approach (ICD-10-PCS; 2019-12-14)
DX: K85.90 Acute pancreatitis without necrosis or infection, unspecified (principal); E11.42 Type 2 diabetes mellitus with diabetic polyneuropathy; E11.621 Type 2 diabetes mellitus with foot ulcer; E66.01 Morbid (severe) obesity due to excess calories; K31.84 Gastroparesis; E11.43 Type 2 diabetes mellitus with diabetic autonomic (poly)neuropathy; E11.65 Type 2 diabetes mellitus with hyperglycemia; F17.210 Nicotine dependence, cigarettes, uncomplicated; E11.622 Type 2 diabetes mellitus with other skin ulcer; E78.5 Hyperlipidemia, unspecified; F12.90 Cannabis use, unspecified, uncomplicated; I10 Essential (primary) hypertension; L97.519 Non-pressure chronic ulcer of other part of right foot with unspecified severity; T38.3X6A Underdosing of insulin and oral hypoglycemic [antidiabetic] drugs, initial encounter; R07.89 Other chest pain; L57.0 Actinic keratosis; Z79.4 Long term (current) use of insulin; Z79.899 Other long term (current) drug therapy; Y92.89 Other specified places as the place of occurrence of the external cause; Z68.30 Body mass index [BMI] 30.0-30.9, adult
CPT/HCPCS: 36415; 36573; 36600; 71045; 73610; 74177; 76881; 76937; 80048; 80053; 80061; 80305; 82010; 82375; 82805; 82962; 83036; 83735; 84100; 84443; 84484; 85025; 93005; 93970; 97116; 97162; 97535; 99285; C1725; J0360; J1650; J1815; J2270; J2405; J2765; J3490; J7030; Q9967

== ENCOUNTER 2020-04-08 09:57 | Emergency (ER) | payer MEDICAID ==
[~2020-04-08] VITALS: Ht 177.8 cm; Wt 91.0 kg
[~2020-04-08 09:57] MED LIST changes: +ATOR20TA MT; +METF-416 MT; -METF500T PO
[2020-04-08] MEDS ORDERED: MORPHINE SULFATE 4 MG/ML CPJ (NOT FOR IM USE) IV STA (10:09)
[2020-04-08] MEDS ORDERED: ONDANSETRON HCL 4MG/2ML INJ IV STA (10:09)
[2020-04-08] MEDS ORDERED: FAMOTIDINE 20MG/2ML VIAL IV STA (10:09)
[2020-04-08] MEDS ORDERED: SODIUM CHLORIDE 0.9% 1,000 ML IV ONE (10:09)
[2020-04-08] MEDS ORDERED: ENALAPRIL 2.5MG/2ML VIAL 2ML IV ONE (10:15)
[2020-04-08] MEDS ORDERED: ENALAPRIL 1.25MG/ML VIAL 1ML IV ONE (10:49)
[2020-04-08 10:51] LABS: HEMATOCRIT. 45.1 % (42.0-52.0); HEMOGLOBIN. 15.1 g/dL (14.0-18.0); MEAN CORPUSCULAR HEMOGLOBIN 30.3 pg (28.0-32.0); MEAN CORPUSCULAR VOLUME 90.5 fL (80.0-94.0); MEAN PLATELET VOLUME 9.7 fl (7.4-10.4); PLATELET 261 x1000/uL (130-400); RED BLOOD CELL COUNT 4.98 mill/uL (4.7-6.1); RED CELL DISTRIBUTION WIDTH 13.4 % (11.6-14.6)
[2020-04-08 11:40] LABS: PLATELET ESTIMATE NORMAL
[2020-04-08 11:56] LABS: CLARITY URINE CLEAR (CLEAR); COLOR URINE YELLOW (YELLOW); KETONES URINE 2+ (NEGATIVE); LEUKOCYTE ESTERASE URINE NEGATIVE (NEGATIVE); NITRITE URINE NEGATIVE (NEGATIVE); OCCULT BLOOD URINE 2+ (NEGATIVE); PROTEIN URINE 3+ (NEGATIVE); SPECIFIC GRAVITY URINE 1.027 (1.005-1.030); UROBILINOGEN URINE 0.2 E.U./dL (0.2-1.0)
[2020-04-08 12:00] LABS: CHLORIDE 103 mEq/L (98-107)
[2020-04-08 12:01] LABS: PROTHROMBIN TIME 10.1 sec (9.6-11.0)
[2020-04-08 12:04] LABS: ETHANOL BLOOD < 10 mg/dL
[2020-04-08 12:21] LABS: BG BASE EXCESS -2.3 mmol/L (-2.0-2.0); BG CARBOXYHEMOGLOBIN 1.6 % (0.5-1.5); BG DEOXYHEMOGLOBIN 3.6 % (0.0-5.0); BG FRACTION INSPIRED OXYGEN 21; BG HCO3 ACT 22.2 mmol/L (22.0-26.0); BG METHEMOGLOBIN 0.4 % (0.0-1.5); BG OXYGEN SATURATION 96.3 % (92.0-98.5); BG OXYHEMOGLOBIN 94.4 % (94.0-97.0); BG PCO2 37.9 mmHg (35.0-45.0); BG PH 7.386 (7.350-7.450); BG PO2 84.9 mmHg (75.0-100.0); BG SAMPLE SITE RIGHT BRACHIAL; BG TOTAL HEMOGLOBIN 15.4 g/dL (12.0-18.0); BG VENT MODE ROOM AIR
[2020-04-08 14:03] VITALS: BP 179/110
== END 2020-04-08 14:41 | disposition left against medical advice (07) ==
LOC: ER 09:57 → EDBEDREQ 13:08 → ER 14:41 → CANRESERV 16:28 → ENRESERV 16:28 → CANBEDREQ 18:08
DX: E11.65 Type 2 diabetes mellitus with hyperglycemia (principal); G93.49 Other encephalopathy; R10.13 Epigastric pain; I10 Essential (primary) hypertension; F12.10 Cannabis abuse, uncomplicated; Z91.14 Patient's other noncompliance with medication regimen; Z79.4 Long term (current) use of insulin
CPT/HCPCS: 36415; 36600; 70450; 71045; 74176; 80053; 80320; 81003; 82010; 82375; 82805; 82962; 83690; 83930; 84484; 85025; 85610; 93005; 96361; 96374; 96375; 99285; J2270; J2405; J3490; J7030; G0480

== ENCOUNTER 2020-05-02 12:16 | Emergency (ER) | payer MEDICAID ==
[~2020-05-02] VITALS: Ht 182.9 cm; Wt 112.0 kg
[2020-05-02] MEDS ORDERED: SODIUM CHLORIDE 0.9% 1,000 ML IV ONE ×2 (12:45→17:30)
[2020-05-02 13:08] LABS: BASOPHILS % 0.7 % (0.0-2.0); EOSINOPHILS % 0.1 % (0.0-5.0); HEMOGLOBIN. 15.3 g/dL (14.0-18.0); MEAN CORPUSCULAR HEMOGLOBIN 31.1 pg (28.0-32.0); MEAN CORPUSCULAR VOLUME 89.5 fL (80.0-94.0); MONOCYTES % 3.8 % (2.0-8.0); NEUTROPHILS % 80.4 % (40.0-76.0); PLATELET 236 x1000/uL (130-400); RED BLOOD CELL COUNT 4.92 mill/uL (4.7-6.1); RED CELL DISTRIBUTION WIDTH 13.3 % (11.6-14.6)
[2020-05-02 13:13] LABS: CHLORIDE 105 mEq/L (98-107)
[2020-05-02 13:15] LABS: PROTHROMBIN TIME 10.1 sec (9.6-11.0)
[2020-05-02 13:18] LABS: ETHANOL BLOOD < 10 mg/dL
[2020-05-02 13:24] LABS: BETA HYDROXYBUTYRATE 1.3 mMol/L (0.0-0.3)
[2020-05-02 15:32] LABS: CLARITY URINE CLEAR (CLEAR); COLOR URINE YELLOW (YELLOW); KETONES URINE 2+ (NEGATIVE); LEUKOCYTE ESTERASE URINE NEGATIVE (NEGATIVE); NITRITE URINE NEGATIVE (NEGATIVE); OCCULT BLOOD URINE 2+ (NEGATIVE); PROTEIN URINE 3+ (NEGATIVE); SPECIFIC GRAVITY URINE 1.031 (1.005-1.030)
[2020-05-02 16:13] LABS: METHADONE URINE SCREEN NEGATIVE (NEGATIVE)
[2020-05-02 16:14] LABS: *AMPHETAMINES SCREEN URINE NEGATIVE (NEGATIVE); *BARBITURATES SCREEN URINE NEGATIVE (NEGATIVE); CANNABINOID URINE SCREEN PRESUMTIVE POSITIVE (NEGATIVE); OPIATES URINE SCREEN NEGATIVE (NEGATIVE); PHENCYCLIDINE URINE SCREEN NEGATIVE (NEGATIVE)
[2020-05-02 16:15] LABS: *BENZODIAZEPINES SCREEN URINE NEGATIVE (NEGATIVE); *COCAINE SCREEN URINE NEGATIVE (NEGATIVE)
[2020-05-02] MEDS ORDERED: DEXTROSE 5% WATER 1,000 ML IV ONE (17:30)
[2020-05-02] MEDS ORDERED: ONDANSETRON HCL 4MG/2ML INJ IV ONE (17:30)
[2020-05-02] MEDS ORDERED: IOHEXOL-300 100 ML BOTTLE ONE (17:54)
[2020-05-02] MEDS ORDERED: MORPHINE SULFATE 4 MG/ML CPJ (NOT FOR IM USE) IV ONE ×2 (18:30)
[2020-05-02] MEDS ORDERED: LABETALOL 5MG/ML SYR 20 MG/4 ML SYRINGE IV ONE (18:30)
[2020-05-02 19:46] VITALS: BP 141/77
== END 2020-05-02 20:51 | disposition left against medical advice (07) ==
LOC: ER 12:16 → EDBEDREQTM 20:14 → EDBEDREQ 20:14 → ER 20:51 → CANBEDREQ 23:34
DX: A08.4 Viral intestinal infection, unspecified (principal); I10 Essential (primary) hypertension; E11.9 Type 2 diabetes mellitus without complications; F12.10 Cannabis abuse, uncomplicated; Z79.899 Other long term (current) drug therapy
CPT/HCPCS: 36415; 70450; 71045; 74177; 80053; 80305; 80320; 81003; 82010; 83605; 83690; 84484; 85025; 85610; 86850; 86900; 86901; 93005; 96361; 96374; 96375; 99285; J2270; J2405; J3490; J7030; J7070; Q9967; G0480

== ENCOUNTER 2020-05-03 13:21 | Emergency (ER) | payer MEDICAID ==
[~2020-05-03] VITALS: Ht 182.9 cm; Wt 90.0 kg
[2020-05-03] MEDS ORDERED: ONDANSETRON HCL 4MG/2ML INJ IV STA (13:48)
[2020-05-03] MEDS ORDERED: FAMOTIDINE 20MG/2ML VIAL IV STA (13:48)
[2020-05-03] MEDS ORDERED: SODIUM CHLORIDE 0.9% 1,000 ML IV ONE ×2 (14:00→16:30)
[2020-05-03 14:16] LABS: HEMOGLOBIN. 13.9 g/dL (14.0-18.0); LYMPHOCYTES % 10.1 % (20.0-50.0); MEAN CORPUSCULAR HEMOGLOBIN 30.4 pg (28.0-32.0); MEAN CORPUSCULAR VOLUME 89.7 fL (80.0-94.0); MEAN PLATELET VOLUME 9.9 fl (7.4-10.4); NEUTROPHILS % 83.9 % (40.0-76.0); PLATELET 239 x1000/uL (130-400); RED BLOOD CELL COUNT 4.57 mill/uL (4.7-6.1); RED CELL DISTRIBUTION WIDTH 13.3 % (11.6-14.6)
[2020-05-03 14:19] LABS: CHLORIDE 102 mEq/L (98-107)
[2020-05-03 14:23] LABS: ETHANOL BLOOD < 10 mg/dL
[2020-05-03 14:27] LABS: PROTHROMBIN TIME 10.3 sec (9.6-11.0)
[2020-05-03 16:02] LABS: CLARITY URINE CLEAR (CLEAR); COLOR URINE YELLOW (YELLOW); KETONES URINE 2+ (NEGATIVE); LEUKOCYTE ESTERASE URINE NEGATIVE (NEGATIVE); NITRITE URINE NEGATIVE (NEGATIVE); OCCULT BLOOD URINE 1+ (NEGATIVE); PH URINE 6.5 (4.5-8.0); PROTEIN URINE 3+ (NEGATIVE); SPECIFIC GRAVITY URINE 1.029 (1.005-1.030)
[2020-05-03] MEDS ORDERED: CLONIDINE 0.2MG TABLET PO ONE (16:15)
[2020-05-03 16:53] LABS: *AMPHETAMINES SCREEN URINE NEGATIVE (NEGATIVE)
[2020-05-03 16:54] LABS: *BARBITURATES SCREEN URINE NEGATIVE (NEGATIVE); *BENZODIAZEPINES SCREEN URINE NEGATIVE (NEGATIVE); *COCAINE SCREEN URINE NEGATIVE (NEGATIVE); CANNABINOID URINE SCREEN PRESUMTIVE POSITIVE (NEGATIVE); METHADONE URINE SCREEN NEGATIVE (NEGATIVE); OPIATES URINE SCREEN NEGATIVE (NEGATIVE); PHENCYCLIDINE URINE SCREEN NEGATIVE (NEGATIVE)
[2020-05-03 17:54] VITALS: BP 174/92
[2020-05-03] MEDS ORDERED: METFORMIN HCL 500MG TABLET PO NR (18:30)
== END 2020-05-03 19:04 | disposition home or self-care (01) ==
LOC: ER 13:21
DX: E11.65 Type 2 diabetes mellitus with hyperglycemia (principal); I10 Essential (primary) hypertension; F12.10 Cannabis abuse, uncomplicated; Z98.890 Other specified postprocedural states; Z79.4 Long term (current) use of insulin; Z91.14 Patient's other noncompliance with medication regimen
CPT/HCPCS: 36415; 71045; 76705; 80053; 80305; 80320; 81003; 82962; 83690; 85025; 85610; 93005; 96361; 96374; 96375; 99285; J2405; J3490; J7030; G0480

== ENCOUNTER 2020-05-05 15:44 | Emergency (ER) | payer MEDICAID ==
[~2020-05-05] VITALS: Ht 172.7 cm; Wt 100.0 kg
[2020-05-05] MEDS ORDERED: KETOROLAC 30MG/ML VIAL IV STA (16:52)
[2020-05-05] MEDS ORDERED: ONDANSETRON HCL 4MG/2ML INJ IV STA (16:52)
[2020-05-05] MEDS ORDERED: MAGNESIUM/ALUMINUM HYDROXIDE/SIMETHICONE 30ML UDC PO STA (16:52)
[2020-05-05] MEDS ORDERED: SODIUM CHLORIDE 0.9% 1,000 ML IV ONE (17:00)
[2020-05-05 17:25] VITALS: BP 148/86
[2020-05-05 18:05] LABS: BASOPHILS % 0.9 % (0.0-2.0); EOSINOPHILS % 0.1 % (0.0-5.0); HEMATOCRIT. 43.6 % (42.0-52.0); HEMOGLOBIN. 14.7 g/dL (14.0-18.0); MEAN CORPUSCULAR HEMOGLOBIN 30.3 pg (28.0-32.0); MEAN CORPUSCULAR VOLUME 89.7 fL (80.0-94.0); MEAN PLATELET VOLUME 9.5 fl (7.4-10.4); MONOCYTES % 7.5 % (2.0-8.0); NEUTROPHILS % 75.5 % (40.0-76.0); PLATELET 254 x1000/uL (130-400); RED BLOOD CELL COUNT 4.86 mill/uL (4.7-6.1)
[2020-05-05 18:12] LABS: PROTHROMBIN TIME 10.6 sec (9.6-11.0)
[2020-05-05 18:18] LABS: CHLORIDE 98 mEq/L (98-107)
[2020-05-05 18:22] LABS: ETHANOL BLOOD < 10 mg/dL
[2020-05-05] MEDS ORDERED: ACETAMINOPHEN 325MG TABLET PO ONE (19:45)
== END 2020-05-05 19:49 | disposition home or self-care (01) ==
LOC: ER 15:44
DX: E11.65 Type 2 diabetes mellitus with hyperglycemia (principal); I10 Essential (primary) hypertension; Z79.899 Other long term (current) drug therapy; Z79.4 Long term (current) use of insulin
CPT/HCPCS: 36415; 71045; 80053; 80320; 83690; 85025; 85610; 96361; 96374; 96375; 99284; J1885; J2405; J7030; G0480

== ENCOUNTER 2020-05-06 01:38 | Inpatient (IN) | payer MEDICAID ==
[~2020-05-06] VITALS: Ht 190.5 cm; Wt 106.1 kg
[2020-05-06] MEDS ORDERED: KETOROLAC 30MG/ML VIAL IV STA (02:34)
[2020-05-06] MEDS ORDERED: ONDANSETRON HCL 4MG/2ML INJ IV STA (02:34)
[2020-05-06] MEDS ORDERED: SODIUM CHLORIDE 0.9% 1,000 ML IV ONE (02:45)
[2020-05-06 03:36] LABS: BASOPHILS % 0.8 % (0.0-2.0); EOSINOPHILS % 0.1 % (0.0-5.0); HEMATOCRIT. 45.9 % (42.0-52.0); HEMOGLOBIN. 15.7 g/dL (14.0-18.0); LYMPHOCYTES % 14.4 % (20.0-50.0); MEAN CORPUSCULAR HEMOGLOBIN 30.7 pg (28.0-32.0); MEAN CORPUSCULAR VOLUME 89.5 fL (80.0-94.0); MEAN PLATELET VOLUME 9.5 fl (7.4-10.4); MONOCYTES % 7.1 % (2.0-8.0); NEUTROPHILS % 77.6 % (40.0-76.0); PLATELET 267 x1000/uL (130-400); RED BLOOD CELL COUNT 5.13 mill/uL (4.7-6.1); RED CELL DISTRIBUTION WIDTH 13.3 % (11.6-14.6)
[2020-05-06 04:03] LABS: CHLORIDE 98 mEq/L (98-107)
[2020-05-06] MEDS ORDERED: LEVOFLOXACIN 750MG PREMIX 150 ML IV ONE (05:15)
[2020-05-06] MEDS ORDERED: METRONIDAZOLE 500 MG PREMIX 100 ML IV ONE (05:15)
[2020-05-06] MEDS ORDERED: IOHEXOL-350 100 ML BOTTLE ONE (06:18)
[2020-05-06] MEDS ORDERED: ONDANSETRON HCL 4MG/2ML INJ IV PRN (09:30)
[2020-05-06] MEDS ORDERED: DEXTROSE 50% WATER 50ML SYRINGE IV PRN (09:30)
[2020-05-06] MEDS ORDERED: ACETAMINOPHEN 325MG TABLET PO PRN (09:30)
[2020-05-06] MEDS: OMEPRAZOLE 20MG CAPSULE EXTENDED RELEASE PO SCH (09:50)
[2020-05-06 10:10] VITALS: BP 209/124
[2020-05-06] MEDS ORDERED: LABETALOL 5MG/ML SYR 20 MG/4 ML SYRINGE IV NR (10:15)
[2020-05-06 10:21] VITALS: BP 209/124
[2020-05-06] MEDS: AMLODIPINE 10MG TABLET PO SCH (10:27)
[2020-05-06 12:00] VITALS: BP 183/105
[2020-05-06] MEDS: LOSARTAN POTASSIUM 100 MG TABLET PO SCH (12:53)
[2020-05-06] MEDS: METOCLOPRAMIDE HCL 10MG/2ML VIAL IV SCH ×2 (12:54→17:03)
[2020-05-06] MEDS: BLOOD SUGAR DIAGNOSTIC STRIP TEST SCH ×3 (12:54→21:00)
[2020-05-06] MEDS: INSULIN LISPRO 100 UNITS/ML SUBCUT SCH ×3 (13:10→21:27)
[2020-05-06 16:00] VITALS: BP 183/112
[2020-05-06] MEDS: KETOROLAC 30MG/ML VIAL IV PRN (17:04)
[2020-05-06] MEDS: CLONIDINE 0.1MG TABLET PO PRN (17:05)
[2020-05-06 20:00] VITALS: BP 125/65
[2020-05-06] MEDS: ATORVASTATIN CALCIUM 40MG TABLET PO SCH (21:12)
[2020-05-06] MEDS: INSULIN GLARGINE UD 100 UNITS/ML SYR SUBCUT SCH (21:27)
[2020-05-06] MEDS: MORPHINE SULFATE 4 MG/ML CPJ (NOT FOR IM USE) IV PRN (22:21)
[2020-05-07] VITALS: BP 158/103
[2020-05-07] MEDS: METOCLOPRAMIDE HCL 10MG/2ML VIAL IV SCH ×5 (01:02→23:37)
[2020-05-07 04:00] VITALS: BP 166/104
[2020-05-07] MEDS: OMEPRAZOLE 20MG CAPSULE EXTENDED RELEASE PO SCH (06:09)
[2020-05-07] MEDS: KETOROLAC 30MG/ML VIAL IV PRN (06:23)
[2020-05-07] MEDS: CLONIDINE 0.1MG TABLET PO PRN ×2 (06:24→18:36)
[2020-05-07 06:48] LABS: BASOPHILS % 0.5 % (0.0-2.0); EOSINOPHILS % 1.1 % (0.0-5.0); HEMATOCRIT. 41.7 % (42.0-52.0); HEMOGLOBIN. 14.3 g/dL (14.0-18.0); LYMPHOCYTES % 26.3 % (20.0-50.0); MEAN CORPUSCULAR HEMOGLOBIN 30.5 pg (28.0-32.0); MEAN CORPUSCULAR VOLUME 88.9 fL (80.0-94.0); MEAN PLATELET VOLUME 9.5 fl (7.4-10.4); MONOCYTES % 7.1 % (2.0-8.0); PLATELET 259 x1000/uL (130-400); RED BLOOD CELL COUNT 4.68 mill/uL (4.7-6.1); RED CELL DISTRIBUTION WIDTH 13.1 % (11.6-14.6)
[2020-05-07] MEDS: BLOOD SUGAR DIAGNOSTIC STRIP TEST SCH ×4 (07:10→20:56)
[2020-05-07 07:16] LABS: CHLORIDE 101 mEq/L (98-107)
[2020-05-07 08:00] VITALS: BP 146/63
[2020-05-07] MEDS: LOSARTAN POTASSIUM 100 MG TABLET PO SCH (08:41)
[2020-05-07] MEDS: AMLODIPINE 10MG TABLET PO SCH (08:41)
[2020-05-07] MEDS: INSULIN LISPRO 100 UNITS/ML SUBCUT SCH ×4 (08:43→20:57)
[2020-05-07] MEDS: INSULIN GLARGINE UD 100 UNITS/ML SYR SUBCUT SCH ×2 (09:25→22:09)
[2020-05-07] MEDS ORDERED: POTASSIUM CHLORIDE 20MEQ TABLET SR PO NR (11:00)
[2020-05-07 12:00] VITALS: BP 160/109
[2020-05-07 15:33] LABS: CLARITY URINE CLEAR (CLEAR); COLOR URINE DARK YELLOW (YELLOW); KETONES URINE 1+ (NEGATIVE); LEUKOCYTE ESTERASE URINE NEGATIVE (NEGATIVE); NITRITE URINE NEGATIVE (NEGATIVE); OCCULT BLOOD URINE 1+ (NEGATIVE); PH URINE 5.5 (4.5-8.0); PROTEIN URINE 3+ (NEGATIVE); SPECIFIC GRAVITY URINE 1.025 (1.005-1.030)
[2020-05-07 15:48] LABS: *AMPHETAMINES SCREEN URINE NEGATIVE (NEGATIVE); CANNABINOID URINE SCREEN PRESUMTIVE POSITIVE (NEGATIVE); OPIATES URINE SCREEN PRESUMTIVE POSITIVE (NEGATIVE); PHENCYCLIDINE URINE SCREEN NEGATIVE (NEGATIVE)
[2020-05-07 15:49] LABS: *BARBITURATES SCREEN URINE NEGATIVE (NEGATIVE); *BENZODIAZEPINES SCREEN URINE NEGATIVE (NEGATIVE); *COCAINE SCREEN URINE NEGATIVE (NEGATIVE); METHADONE URINE SCREEN NEGATIVE (NEGATIVE)
[2020-05-07 16:00] VITALS: BP 180/114
[2020-05-07 20:00] VITALS: BP 161/86
[2020-05-07] MEDS: ATORVASTATIN CALCIUM 40MG TABLET PO SCH (20:56)
[2020-05-07] MEDS: MORPHINE SULFATE 4 MG/ML CPJ (NOT FOR IM USE) IV PRN (20:58)
[2020-05-08] VITALS: BP 152/97
[2020-05-08 04:00] VITALS: BP 191/115
[2020-05-08] MEDS: MORPHINE SULFATE 4 MG/ML CPJ (NOT FOR IM USE) IV PRN (04:10)
[2020-05-08] MEDS: OMEPRAZOLE 20MG CAPSULE EXTENDED RELEASE PO SCH (06:06)
[2020-05-08] MEDS: METOCLOPRAMIDE HCL 10MG/2ML VIAL IV SCH ×2 (06:06→13:41)
[2020-05-08] MEDS: BLOOD SUGAR DIAGNOSTIC STRIP TEST SCH ×2 (06:32→12:10)
[2020-05-08] MEDS: INSULIN LISPRO 100 UNITS/ML SUBCUT SCH ×2 (06:33→13:42)
[2020-05-08 08:00] VITALS: BP 155/100
[2020-05-08] MEDS: LOSARTAN POTASSIUM 100 MG TABLET PO SCH (09:36)
[2020-05-08] MEDS: AMLODIPINE 10MG TABLET PO SCH (09:37)
[2020-05-08] MEDS: INSULIN GLARGINE UD 100 UNITS/ML SYR SUBCUT SCH (09:40)
[2020-05-08] MEDS ORDERED: INSU100I28 SQ (12:54)
[2020-05-08 14:03] VITALS: BP 155/100
[2020-05-08] MEDS ORDERED: HYDRALAZINE HCL 50MG TABLET PO SCH (21:00)
[2020-05-09] MEDS ORDERED: FAMOTIDINE 20MG TABLET PO SCH (09:00)
== END 2020-05-08 16:45 | disposition home or self-care (01) | DRG 48 ==
LOC: ER 01:38 → 8WST 06:39 → CANRESERV 07:13 → ENRESERV 07:13
PROVIDERS: ADMIT Internal Medicine; ATTEND Internal Medicine
DX: E11.43 Type 2 diabetes mellitus with diabetic autonomic (poly)neuropathy (principal); K52.9 Noninfective gastroenteritis and colitis, unspecified; K31.84 Gastroparesis; I10 Essential (primary) hypertension; E78.5 Hyperlipidemia, unspecified; E87.1 Hypo-osmolality and hyponatremia; Z79.4 Long term (current) use of insulin; Z79.899 Other long term (current) drug therapy; Z82.49 Family history of ischemic heart disease and other diseases of the circulatory system; Z83.3 Family history of diabetes mellitus; Z90.49 Acquired absence of other specified parts of digestive tract
CPT/HCPCS: 36415; 71045; 74174; 74176; 80048; 80053; 80305; 81003; 82962; 85025; 93005; 99285; G0378; J1815; J1885; J2270; J2405; J2765; J3490; J7030; Q9967

== ENCOUNTER 2021-06-18 18:39 | Inpatient (IN) | payer MEDICAID ==
[~2021-06-18] VITALS: Ht 190.5 cm; Wt 101.2 kg
[~2021-06-18 18:39] MED LIST changes: -CLON0.1T MT; -METF-416 MT; -NEOAPJ IM
[2021-06-18] MEDS ORDERED: METOCLOPRAMIDE HCL 10MG/2ML VIAL IV ONE (19:15)
[2021-06-18] MEDS ORDERED: DIPHENHYDRAMINE 50MG/ML VIAL IV ONE (19:15)
[2021-06-18] MEDS ORDERED: SODIUM CHLORIDE 0.9% 1,000 ML IV ONE (19:15)
[2021-06-18] MEDS ORDERED: KETOROLAC 30MG/ML VIAL IV ONE (19:15)
[2021-06-18 19:43] LABS: CHLORIDE 102 mEq/L (98-107)
[2021-06-18 19:43] LABS: BASOPHILS % 0.7 % (0.0-2.0); EOSINOPHILS % 0.1 % (0.0-5.0); HEMATOCRIT. 40.8 % (42.0-52.0); LYMPHOCYTES % 16.3 % (20.0-50.0); MEAN CORPUSCULAR HEMOGLOBIN 31.1 pg (28.0-32.0); MEAN CORPUSCULAR VOLUME 90.6 fL (80.0-94.0); MEAN PLATELET VOLUME 8.9 fl (7.4-10.4); MONOCYTES % 7.1 % (2.0-8.0); NEUTROPHILS % 75.8 % (40.0-76.0); PLATELET 237 x1000/uL (130-400); RED BLOOD CELL COUNT 4.51 mill/uL (4.7-6.1); RED CELL DISTRIBUTION WIDTH 13.7 % (11.6-14.6)
[2021-06-18] MEDS ORDERED: HALOPERIDOL LACTATE 5MG/ML VIAL IM ONE (21:45)
[2021-06-18 22:45] LABS: CLARITY URINE CLEAR (CLEAR); COLOR URINE YELLOW (YELLOW); KETONES URINE 1+ (NEGATIVE); LEUKOCYTE ESTERASE URINE TRACE (NEGATIVE); NITRITE URINE NEGATIVE (NEGATIVE); OCCULT BLOOD URINE 1+ (NEGATIVE); PROTEIN URINE 3+ (NEGATIVE); SPECIFIC GRAVITY URINE 1.022 (1.005-1.030); UROBILINOGEN URINE 0.2 E.U./dL (0.2-1.0)
[2021-06-18 23:03] LABS: *AMPHETAMINES SCREEN URINE NEGATIVE (NEGATIVE); *BARBITURATES SCREEN URINE NEGATIVE (NEGATIVE); *BENZODIAZEPINES SCREEN URINE NEGATIVE (NEGATIVE); *COCAINE SCREEN URINE NEGATIVE (NEGATIVE)
[2021-06-18 23:04] LABS: CANNABINOID URINE SCREEN PRESUMTIVE POSITIVE (NEGATIVE); METHADONE URINE SCREEN NEGATIVE (NEGATIVE); OPIATES URINE SCREEN PRESUMTIVE POSITIVE (NEGATIVE); PHENCYCLIDINE URINE SCREEN NEGATIVE (NEGATIVE)
[2021-06-19] VITALS (7 sets, daily range): BP systolic 133–190; BP diastolic 84–112
[2021-06-19] MEDS ORDERED: CLON0.2T MT (01:00)
[2021-06-19] MEDS ORDERED: METF-416 MT (01:00)
[2021-06-19] MEDS ORDERED: NALOXONE HCL 0.4 MG/ML 1ML VIAL IV PRN (05:00)
[2021-06-19] MEDS ORDERED: CLONIDINE 0.1MG TABLET PO PRN (05:00)
[2021-06-19] MEDS ORDERED: DEXTROSE 50% WATER 50ML SYRINGE IV PRN (05:00)
[2021-06-19] MEDS: ONDANSETRON HCL 4MG/2ML INJ IV PRN ×2 (05:25→20:17)
[2021-06-19] MEDS: INSULIN LISPRO 100 UNITS/ML SUBCUT SCH ×4 (06:14→20:21)
[2021-06-19] MEDS: BLOOD SUGAR DIAGNOSTIC STRIP TEST SCH ×4 (06:14→20:21)
[2021-06-19] MEDS: HYDROCODONE/ACETAMINOPHEN 5/325MG TABLET PO PRN ×2 (08:36→20:18)
[2021-06-19 08:39] LABS: BASOPHILS % 0.7 % (0.0-2.0); EOSINOPHILS % 0.3 % (0.0-5.0); HEMATOCRIT. 40.3 % (42.0-52.0); HEMOGLOBIN. 13.3 g/dL (14.0-18.0); LYMPHOCYTES % 17.7 % (20.0-50.0); MEAN CORPUSCULAR HEMOGLOBIN 29.9 pg (28.0-32.0); MEAN CORPUSCULAR VOLUME 90.9 fL (80.0-94.0); MEAN PLATELET VOLUME 8.4 fl (7.4-10.4); MONOCYTES % 7.5 % (2.0-8.0); NEUTROPHILS % 73.8 % (40.0-76.0); PLATELET 252 x1000/uL (130-400); RED BLOOD CELL COUNT 4.43 mill/uL (4.7-6.1); RED CELL DISTRIBUTION WIDTH 13.8 % (11.6-14.6)
[2021-06-19 09:05] LABS: CHLORIDE 103 mEq/L (98-107)
[2021-06-19] MEDS ORDERED: AMLODIPINE 5MG TABLET PO SCH (09:30)
[2021-06-19] MEDS ORDERED: AMLODIPINE 5MG TABLET PO NR (13:00)
[2021-06-19] MEDS: METOCLOPRAMIDE HCL 10MG/2ML VIAL IV SCH ×3 (13:32→23:30)
[2021-06-19] MEDS: CLONIDINE 0.2MG TABLET PO SCH (18:05)
[2021-06-20] MEDS: ONDANSETRON HCL 4MG/2ML INJ IV PRN ×2 (03:25→08:08)
[2021-06-20 03:30] VITALS: BP 149/94
[2021-06-20] MEDS: HYDROCODONE/ACETAMINOPHEN 5/325MG TABLET PO PRN ×2 (03:30→11:22)
[2021-06-20] MEDS: METOCLOPRAMIDE HCL 10MG/2ML VIAL IV SCH ×2 (05:13→11:22)
[2021-06-20] MEDS: INSULIN LISPRO 100 UNITS/ML SUBCUT SCH ×2 (06:54→12:09)
[2021-06-20] MEDS: BLOOD SUGAR DIAGNOSTIC STRIP TEST SCH ×2 (06:54→12:09)
[2021-06-20 08:00] VITALS: BP 137/82
[2021-06-20] MEDS: CLONIDINE 0.2MG TABLET PO SCH (08:08)
[2021-06-20] MEDS ORDERED: AMLODIPINE 5MG TABLET PO SCH (09:00)
[2021-06-20] MEDS ORDERED: AMLODIPINE 10MG TABLET PO SCH (09:00)
[2021-06-20 11:30] LABS: BASOPHILS % 0.6 % (0.0-2.0); EOSINOPHILS % 1.5 % (0.0-5.0); HEMATOCRIT. 39.3 % (42.0-52.0); HEMOGLOBIN. 12.9 g/dL (14.0-18.0); LYMPHOCYTES % 30.2 % (20.0-50.0); MEAN CORPUSCULAR HEMOGLOBIN 30.1 pg (28.0-32.0); MEAN CORPUSCULAR VOLUME 91.5 fL (80.0-94.0); MEAN PLATELET VOLUME 8.5 fl (7.4-10.4); NEUTROPHILS % 59.7 % (40.0-76.0); PLATELET 239 x1000/uL (130-400); RED BLOOD CELL COUNT 4.29 mill/uL (4.7-6.1); RED CELL DISTRIBUTION WIDTH 13.8 % (11.6-14.6)
[2021-06-20 11:37] LABS: CHLORIDE 100 mEq/L (98-107)
[2021-06-20 11:47] LABS: PHOSPHORUS 3.2 mg/dL (2.5-4.9)
[2021-06-20 12:00] VITALS: BP 124/96
== END 2021-06-20 14:25 | disposition left against medical advice (07) | DRG 197 ==
LOC: ER 18:39 → 8WST 22:08 → EDBEDREQSVC 22:56 → EDBEDREQTM 22:56 → ENRESERV 23:35
PROVIDERS: ADMIT Internal Medicine; ATTEND Internal Medicine
PROC: 0HBMXZZ Excision of Right Foot Skin, External Approach (ICD-10-PCS; principal; 2021-06-20)
PROC: 0JBQ0ZZ Excision of Right Foot Subcutaneous Tissue and Fascia, Open Approach (ICD-10-PCS; 2021-06-20)
DX: E10.51 Type 1 diabetes mellitus with diabetic peripheral angiopathy without gangrene (principal); E10.621 Type 1 diabetes mellitus with foot ulcer; N17.9 Acute kidney failure, unspecified; E10.22 Type 1 diabetes mellitus with diabetic chronic kidney disease; I16.0 Hypertensive urgency; L97.529 Non-pressure chronic ulcer of other part of left foot with unspecified severity; L97.519 Non-pressure chronic ulcer of other part of right foot with unspecified severity; R07.89 Other chest pain; E10.43 Type 1 diabetes mellitus with diabetic autonomic (poly)neuropathy; K31.84 Gastroparesis; E78.5 Hyperlipidemia, unspecified; K21.9 Gastro-esophageal reflux disease without esophagitis; L84 Corns and callosities; N18.2 Chronic kidney disease, stage 2 (mild); I12.9 Hypertensive chronic kidney disease with stage 1 through stage 4 chronic kidney disease, or unspecified chronic kidney disease; Z59.00 Homelessness unspecified; Z90.49 Acquired absence of other specified parts of digestive tract; Z83.3 Family history of diabetes mellitus; Z79.4 Long term (current) use of insulin
CPT/HCPCS: 36415; 71045; 76770; 80048; 80053; 80305; 81003; 82962; 83036; 83735; 84100; 84484; 85025; 85379; 93005; 93306; 99285; C1893; J1200; J1630; J1815; J1885; J2405; J2765; J7030

== ENCOUNTER 2021-06-23 11:52 | Inpatient (IN) | payer MEDICAID ==
[~2021-06-23] VITALS: Ht 188 cm; Wt 98.0 kg
[~2021-06-23 11:52] MED LIST changes: -ATOR20TA MT; +CLON0.2T MT; -INSU100I28 SQ; +METF-416 MT
[2021-06-23] MEDS ORDERED: KETOROLAC 30MG/ML VIAL IV STA (11:58)
[2021-06-23] MEDS ORDERED: ONDANSETRON HCL 4MG/2ML INJ IV STA (11:58)
[2021-06-23] MEDS ORDERED: SODIUM CHLORIDE 0.9% 1,000 ML IV ONE (12:00)
[2021-06-23] MEDS ORDERED: LABETALOL 5MG/ML SYR 20 MG/4 ML SYRINGE IV ONE (12:15)
[2021-06-23] MEDS ORDERED: PANTOPRAZOLE SODIUM 40 MG/VIAL IV ONE (12:30)
[2021-06-23 12:35] LABS: BASOPHILS % 0.4 % (0.0-2.0); EOSINOPHILS % 0.2 % (0.0-5.0); HEMATOCRIT. 43.2 % (42.0-52.0); HEMOGLOBIN. 14.3 g/dL (14.0-18.0); LYMPHOCYTES % 10.7 % (20.0-50.0); MEAN CORPUSCULAR HEMOGLOBIN 30.4 pg (28.0-32.0); MEAN CORPUSCULAR VOLUME 92.1 fL (80.0-94.0); MEAN PLATELET VOLUME 9.7 fl (7.4-10.4); MONOCYTES % 4.6 % (2.0-8.0); NEUTROPHILS % 84.1 % (40.0-76.0); PLATELET 247 x1000/uL (130-400); RED CELL DISTRIBUTION WIDTH 13.7 % (11.6-14.6)
[2021-06-23 12:42] LABS: CHLORIDE 103 mEq/L (98-107)
[2021-06-23] MEDS ORDERED: METOCLOPRAMIDE HCL 10MG/2ML VIAL IV ONE (12:45)
[2021-06-23 12:47] LABS: ETHANOL BLOOD < 10 mg/dL
[2021-06-23] MEDS ORDERED: LABETALOL HCL VIAL 20 MG/4 ML VIAL IV ONE (15:15)
[2021-06-23] MEDS ORDERED: HALOPERIDOL LACTATE 5MG/ML VIAL IM ONE (15:15)
[2021-06-23] MEDS ORDERED: IPRATROPIUM/ALBUTEROL 0.5-3(2.5)MG/3ML NEB HHN PRN (17:00)
[2021-06-23] MEDS ORDERED: ACETAMINOPHEN 325MG TABLET PO PRN (17:00)
[2021-06-23] MEDS ORDERED: HYDRALAZINE 20MG/ML VIAL IV PRN (17:00)
[2021-06-23] MEDS ORDERED: DIPHENHYDRAMINE 50MG/ML VIAL IV PRN (17:00)
[2021-06-23] MEDS ORDERED: NALOXONE HCL 0.4MG/ML VIAL IV PRN (17:15)
[2021-06-23] MEDS: MORPHINE SULFATE 2 MG/ML CPJ (NOT FOR IM USE) IV PRN ×2 (18:27→22:33)
[2021-06-23] MEDS ORDERED: DEXTROSE 50% WATER 50ML SYRINGE IV PRN (19:15)
[2021-06-23 20:00] VITALS: BP_SYST 168; BP_DIAS 101; BP_DIAS 103
[2021-06-23] MEDS: CLONIDINE 0.1MG TABLET PO PRN (20:43)
[2021-06-23] MEDS: ONDANSETRON HCL 4MG/2ML INJ IV PRN (20:43)
[2021-06-23] MEDS: INSULIN LISPRO 100 UNITS/ML SUBCUT SCH (20:44)
[2021-06-23] MEDS: BLOOD SUGAR DIAGNOSTIC STRIP TEST SCH (20:44)
[2021-06-23] MEDS ORDERED: HYDRALAZINE 10 MG in SODIUM CHLORIDE 0.9% 49.5 ML IV PRN (20:45)
[2021-06-24] VITALS (7 sets, daily range): BP systolic 131–211; BP diastolic 84–135
[2021-06-24] MEDS: ONDANSETRON HCL 4MG/2ML INJ IV PRN ×2 (00:47→04:54)
[2021-06-24] MEDS ORDERED: HYDRALAZINE 20MG/ML VIAL IV PRN (03:00)
[2021-06-24] MEDS: MORPHINE SULFATE 2 MG/ML CPJ (NOT FOR IM USE) IV PRN ×5 (04:54→22:23)
[2021-06-24] MEDS: CLONIDINE 0.1MG TABLET PO PRN (04:54)
[2021-06-24] MEDS: BLOOD SUGAR DIAGNOSTIC STRIP TEST SCH ×4 (06:31→21:25)
[2021-06-24] MEDS: INSULIN LISPRO 100 UNITS/ML SUBCUT SCH ×4 (08:43→21:00)
[2021-06-24 10:29] LABS: BASOPHILS % 0.2 % (0.0-2.0); EOSINOPHILS % 0.1 % (0.0-5.0); HEMATOCRIT. 40.8 % (42.0-52.0); HEMOGLOBIN. 13.2 g/dL (14.0-18.0); MEAN CORPUSCULAR HEMOGLOBIN 29.8 pg (28.0-32.0); MEAN CORPUSCULAR VOLUME 92.2 fL (80.0-94.0); MEAN PLATELET VOLUME 9.2 fl (7.4-10.4); MONOCYTES % 5.3 % (2.0-8.0); NEUTROPHILS % 81.4 % (40.0-76.0); PLATELET 283 x1000/uL (130-400); RED BLOOD CELL COUNT 4.42 mill/uL (4.7-6.1); RED CELL DISTRIBUTION WIDTH 14.1 % (11.6-14.6)
[2021-06-24 10:47] LABS: CHLORIDE 102 mEq/L (98-107)
[2021-06-24] MEDS: METOCLOPRAMIDE HCL 10MG/2ML VIAL IV SCH ×2 (13:05→17:46)
[2021-06-24] MEDS: CLONIDINE 0.2MG TABLET PO SCH ×2 (13:25→21:26)
[2021-06-25] VITALS: BP 138/92
[2021-06-25] MEDS: METOCLOPRAMIDE HCL 10MG/2ML VIAL IV SCH ×5 (00:54→23:55)
[2021-06-25] MEDS: MORPHINE SULFATE 2 MG/ML CPJ (NOT FOR IM USE) IV PRN ×5 (02:47→22:10)
[2021-06-25 04:54] VITALS: BP 148/98
[2021-06-25] MEDS: BLOOD SUGAR DIAGNOSTIC STRIP TEST SCH ×4 (06:23→21:00)
[2021-06-25] MEDS: INSULIN LISPRO 100 UNITS/ML SUBCUT SCH ×4 (07:16→22:04)
[2021-06-25 08:33] VITALS: BP 154/95
[2021-06-25] MEDS: CLONIDINE 0.2MG TABLET PO SCH (08:56)
[2021-06-25 12:00] VITALS: BP 153/97
[2021-06-25] MEDS: AMLODIPINE 5MG TABLET PO SCH ×2 (13:00→22:03)
[2021-06-25 16:00] VITALS: BP 121/57
[2021-06-25 20:00] VITALS: BP 144/93
[2021-06-26] VITALS: BP 136/93
[2021-06-26] MEDS: MORPHINE SULFATE 2 MG/ML CPJ (NOT FOR IM USE) IV PRN (03:32)
[2021-06-26 04:00] VITALS: BP 145/93
[2021-06-26] MEDS: METOCLOPRAMIDE HCL 10MG/2ML VIAL IV SCH (05:46)
[2021-06-26 07:47] VITALS: BP 143/90
[2021-06-26] MEDS: INSULIN LISPRO 100 UNITS/ML SUBCUT SCH (07:50)
[2021-06-26] MEDS: BLOOD SUGAR DIAGNOSTIC STRIP TEST SCH ×2 (08:08→13:11)
[2021-06-26] MEDS: AMLODIPINE 5MG TABLET PO SCH (08:56)
[2021-06-26 12:24] VITALS: BP 148/94
== END 2021-06-26 13:44 | disposition left against medical advice (07) | DRG 48 ==
LOC: ER 14:28 → 6EST 15:42 → EDBEDREQ 15:44 → EDBEDREQTM 15:44 → ENRESERV 15:48 → 6WST 06-24 01:00 → UNDODISIN 06-26 13:30
PROVIDERS: ADMIT Internal Medicine; ATTEND Internal Medicine
PROC: 0JBQ0ZZ Excision of Right Foot Subcutaneous Tissue and Fascia, Open Approach (ICD-10-PCS; principal; 2021-06-26)
DX: E11.43 Type 2 diabetes mellitus with diabetic autonomic (poly)neuropathy (principal); N17.9 Acute kidney failure, unspecified; E11.51 Type 2 diabetes mellitus with diabetic peripheral angiopathy without gangrene; E11.628 Type 2 diabetes mellitus with other skin complications; K31.84 Gastroparesis; L84 Corns and callosities; E78.5 Hyperlipidemia, unspecified; K21.9 Gastro-esophageal reflux disease without esophagitis; I16.1 Hypertensive emergency; R07.89 Other chest pain; S90.931A Unspecified superficial injury of right great toe, initial encounter; X58.XXXA Exposure to other specified factors, initial encounter; I10 Essential (primary) hypertension; I16.0 Hypertensive urgency; Z82.49 Family history of ischemic heart disease and other diseases of the circulatory system; Z83.3 Family history of diabetes mellitus; Z59.00 Homelessness unspecified; Z79.4 Long term (current) use of insulin; Z90.49 Acquired absence of other specified parts of digestive tract; Z79.84 Long term (current) use of oral hypoglycemic drugs; Z79.899 Other long term (current) drug therapy; Z87.81 Personal history of (healed) traumatic fracture; Y93.89 Activity, other specified; Y92.89 Other specified places as the place of occurrence of the external cause; Y99.8 Other external cause status
CPT/HCPCS: 36415; 71045; 80053; 80320; 82962; 83036; 84484; 85025; 93005; 97161; 99285; C1893; C9113; J0360; J1630; J1815; J1885; J2270; J2405; J2765; J3490; J7030; G0480

== ENCOUNTER 2021-11-23 09:56 | Inpatient (IN) | payer MEDICAID ==
[~2021-11-23] VITALS: Ht 177.8 cm; Wt 99.9 kg
[2021-11-23] MEDS ORDERED: SODIUM CHLORIDE 0.9% 1,000 ML IV ONE (10:30)
[2021-11-23] MEDS ORDERED: METOCLOPRAMIDE HCL 10MG/2ML VIAL IV ONE (10:30)
[2021-11-23 10:53] LABS: BASOPHILS % 0.4 % (0.0-2.0); CHLORIDE 109 mEq/L (98-107); EOSINOPHILS % 0.3 % (0.0-5.0); LYMPHOCYTES % 10.8 % (20.0-50.0); MEAN CORPUSCULAR HEMOGLOBIN 30.6 pg (28.0-32.0); MEAN CORPUSCULAR VOLUME 91.7 fL (80.0-94.0); MONOCYTES % 2.9 % (2.0-8.0); NEUTROPHILS % 85.6 % (40.0-76.0); PLATELET 252 x1000/uL (130-400); RED BLOOD CELL COUNT 4.91 mill/uL (4.7-6.1); RED CELL DISTRIBUTION WIDTH 14.2 % (11.6-14.6)
[2021-11-23] MEDS ORDERED: LABETALOL 5MG/ML SYR 20 MG/4 ML SYRINGE IV ONE (11:45)
[2021-11-23] MEDS ORDERED: HALOPERIDOL LACTATE 5MG/ML VIAL IM ONE (12:15)
[2021-11-23 12:33] LABS: ETHANOL BLOOD < 10 mg/dL
[2021-11-23] MEDS ORDERED: CEFTRIAXONE 1 G PREMIX 50 ML IV ONE (14:00)
[2021-11-23] MEDS ORDERED: METRONIDAZOLE 500 MG PREMIX 100 ML IV ONE (14:00)
[2021-11-23 16:00] VITALS: BP 165/99
[2021-11-23] MEDS ORDERED: DEXTROSE 50% WATER 50ML SYRINGE IV PRN (18:45)
[2021-11-23] MEDS ORDERED: ONDANSETRON HCL 4MG/2ML INJ IV PRN (18:45)
[2021-11-23 18:51] VITALS: BP 148/88
[2021-11-23 20:00] VITALS: BP 230/137
[2021-11-23] MEDS ORDERED: NALOXONE HCL 0.4MG/ML VIAL IV PRN (20:00)
[2021-11-23] MEDS: BLOOD SUGAR DIAGNOSTIC STRIP TEST SCH (21:49)
[2021-11-23] MEDS: LEVOFLOXACIN 500MG PREMIX 100 ML IV SCH (21:50)
[2021-11-23] MEDS: FAMOTIDINE 20MG TABLET PO SCH (21:50)
[2021-11-23] MEDS: METRONIDAZOLE 500 MG PREMIX 100 ML IV SCH (21:50)
[2021-11-23] MEDS: HYDROCODONE/ACETAMINOPHEN 5/325MG TABLET PO PRN (21:53)
[2021-11-23] MEDS: INSULIN LISPRO 100 UNITS/ML SUBCUT SCH (22:34)
[2021-11-24] VITALS: BP 215/137
[2021-11-24] MEDS ORDERED: CLONIDINE 0.1MG TABLET PO PRN ×2 (00:15→13:45)
[2021-11-24 04:00] VITALS: BP 185/110
[2021-11-24] MEDS: METRONIDAZOLE 500 MG PREMIX 100 ML IV SCH ×3 (05:17→21:06)
[2021-11-24] MEDS: BLOOD SUGAR DIAGNOSTIC STRIP TEST SCH ×4 (06:25→21:06)
[2021-11-24] MEDS: INSULIN LISPRO 100 UNITS/ML SUBCUT SCH ×4 (07:50→21:00)
[2021-11-24 08:08] VITALS: BP 224/118
[2021-11-24 08:13] LABS: HEMATOCRIT 42.5 % (42.0-52.0); HEMOGLOBIN 14.5 g/dL (14.0-18.0); MEAN CORPUSCULAR HEMOGLOBIN 30.7 pg (28.0-32.0); MEAN CORPUSCULAR VOLUME 90.4 fL (80.0-94.0); PLATELET 235 x1000/uL (130-400); RED CELL DISTRIBUTION WIDTH 14.6 % (11.6-14.6)
[2021-11-24 08:25] LABS: CHLORIDE 101 mEq/L (98-107)
[2021-11-24] MEDS ORDERED: HYDRALAZINE HCL 100MG TABLET PO NR (08:30)
[2021-11-24] MEDS: FAMOTIDINE 20MG TABLET PO SCH ×2 (08:51→21:06)
[2021-11-24] MEDS: AMLODIPINE 10MG TABLET PO SCH (08:51)
[2021-11-24 12:00] VITALS: BP 133/91
[2021-11-24] MEDS: HYDRALAZINE HCL 100MG TABLET PO SCH ×2 (13:20→21:07)
[2021-11-24] MEDS ORDERED: CLONIDINE 0.2MG TABLET PO SCH (14:00)
[2021-11-24] MEDS ORDERED: MORPHINE SULFATE 2 MG/ML CPJ (NOT FOR IM USE) IV NR (14:00)
[2021-11-24 16:00] VITALS: BP 159/87
[2021-11-24] MEDS: METOCLOPRAMIDE HCL 10MG/2ML VIAL IV SCH ×2 (17:43→23:43)
[2021-11-24 20:00] VITALS: BP 173/104
[2021-11-24] MEDS ORDERED: MORPHINE SULFATE 2 MG/ML CPJ (NOT FOR IM USE) IV SCH (20:30)
[2021-11-24] MEDS: LEVOFLOXACIN 500MG PREMIX 100 ML IV SCH (21:06)
[2021-11-25] VITALS: BP 158/97
[2021-11-25] MEDS: HYDROCODONE/ACETAMINOPHEN 5/325MG TABLET PO PRN (03:01)
[2021-11-25 04:00] VITALS: BP 168/105
[2021-11-25] MEDS: HYDRALAZINE HCL 100MG TABLET PO SCH ×3 (05:54→21:15)
[2021-11-25] MEDS: CHLORPROMAZINE HCL 25 MG TABLET PO PRN ×2 (05:54→23:32)
[2021-11-25] MEDS: METOCLOPRAMIDE HCL 10MG/2ML VIAL IV SCH ×4 (05:55→23:22)
[2021-11-25] MEDS: METRONIDAZOLE 500 MG PREMIX 100 ML IV SCH ×3 (05:55→21:14)
[2021-11-25] MEDS: BLOOD SUGAR DIAGNOSTIC STRIP TEST SCH ×4 (06:21→21:15)
[2021-11-25] MEDS: INSULIN LISPRO 100 UNITS/ML SUBCUT SCH ×4 (07:37→21:00)
[2021-11-25 08:00] VITALS: BP 160/84
[2021-11-25] MEDS: FAMOTIDINE 20MG TABLET PO SCH ×2 (09:28→21:15)
[2021-11-25] MEDS: AMLODIPINE 10MG TABLET PO SCH (09:28)
[2021-11-25 12:00] VITALS: BP 161/89
[2021-11-25 16:00] VITALS: BP 148/88
[2021-11-25] MEDS ORDERED: MORPHINE SULFATE 2 MG/ML CPJ (NOT FOR IM USE) IV NR (19:00)
[2021-11-25 20:00] VITALS: BP 141/80
[2021-11-25] MEDS: LEVOFLOXACIN 500MG PREMIX 100 ML IV SCH (21:14)
[2021-11-25 21:54] LABS: BASOPHILS % 0.8 % (0.0-2.0); EOSINOPHILS % 0.1 % (0.0-5.0); HEMATOCRIT. 42.9 % (42.0-52.0); HEMOGLOBIN. 14.8 g/dL (14.0-18.0); LYMPHOCYTES % 13.1 % (20.0-50.0); MEAN CORPUSCULAR HEMOGLOBIN 31.1 pg (28.0-32.0); MEAN PLATELET VOLUME 8.2 fl (7.4-10.4); MONOCYTES % 7.4 % (2.0-8.0); NEUTROPHILS % 78.6 % (40.0-76.0); PLATELET 240 x1000/uL (130-400); RED BLOOD CELL COUNT 4.77 mill/uL (4.7-6.1); RED CELL DISTRIBUTION WIDTH 14.4 % (11.6-14.6)
[2021-11-25] MEDS ORDERED: POTASSIUM CHLORIDE 20MEQ TABLET SR PO NR (23:45)
[2021-11-26] VITALS: BP 128/79
[2021-11-26] MEDS: HYDRALAZINE HCL 100MG TABLET PO SCH ×3 (05:47→21:38)
[2021-11-26] MEDS: METOCLOPRAMIDE HCL 10MG/2ML VIAL IV SCH ×4 (05:47→23:29)
[2021-11-26] MEDS: METRONIDAZOLE 500 MG PREMIX 100 ML IV SCH ×3 (05:47→21:37)
[2021-11-26] MEDS: BLOOD SUGAR DIAGNOSTIC STRIP TEST SCH ×4 (06:38→21:37)
[2021-11-26 06:53] LABS: BASOPHILS % 0.2 % (0.0-2.0); EOSINOPHILS % 0.1 % (0.0-5.0); HEMATOCRIT. 42.5 % (42.0-52.0); HEMOGLOBIN. 14.8 g/dL (14.0-18.0); LYMPHOCYTES % 11.7 % (20.0-50.0); MEAN CORPUSCULAR HEMOGLOBIN 31.2 pg (28.0-32.0); MEAN CORPUSCULAR VOLUME 89.4 fL (80.0-94.0); MEAN PLATELET VOLUME 9.1 fl (7.4-10.4); MONOCYTES % 7.7 % (2.0-8.0); NEUTROPHILS % 80.3 % (40.0-76.0); PLATELET 230 x1000/uL (130-400); RED BLOOD CELL COUNT 4.75 mill/uL (4.7-6.1); RED CELL DISTRIBUTION WIDTH 14.2 % (11.6-14.6)
[2021-11-26 07:06] LABS: PROTHROMBIN TIME 10.9 sec (9.6-11.0)
[2021-11-26] MEDS: INSULIN LISPRO 100 UNITS/ML SUBCUT SCH ×4 (07:50→23:29)
[2021-11-26 08:00] VITALS: BP 139/81
[2021-11-26] MEDS ORDERED: MORPHINE SULFATE 2 MG/ML CPJ (NOT FOR IM USE) IV NR (08:15)
[2021-11-26 08:20] LABS: CHLORIDE 98 mEq/L (98-107)
[2021-11-26] MEDS: AMLODIPINE 10MG TABLET PO SCH (09:00)
[2021-11-26] MEDS: FAMOTIDINE 20MG TABLET PO SCH ×2 (09:00→21:39)
[2021-11-26] MEDS ORDERED: POTASSIUM CHLORIDE 20MEQ TABLET SR PO NR (09:30)
[2021-11-26 12:00] VITALS: BP 161/102
[2021-11-26] MEDS ORDERED: ONDANSETRON HCL 4MG/2ML INJ ONE (14:13)
[2021-11-26] MEDS ORDERED: DEXAMETHASONE 4MG/ML 1ML VIAL ONE (14:13)
[2021-11-26] MEDS ORDERED: PROPOFOL 200MG/20ML VIAL IV ONE (14:13)
[2021-11-26] MEDS ORDERED: LIDOCAINE HCL 1% 20ML VIAL (Pyxis) INJ ONE (14:13)
[2021-11-26] MEDS ORDERED: FENTANYL CITRATE/PF 50MCG/ML 2ML VIAL ONE (14:14)
[2021-11-26] MEDS ORDERED: MIDAZOLAM HCL 2 MG/2 ML VIAL ONE (14:14)
[2021-11-26] MEDS ORDERED: PHENYLEPHRINE HCL 10 MG/ML 1ML (IV VIAL) IV ONE (14:15)
[2021-11-26] MEDS ORDERED: SODIUM CHLORIDE 0.9% 10ML VIAL ONE (14:17)
[2021-11-26] MEDS ORDERED: PANTOPRAZOLE SODIUM 40 MG/VIAL IV SCH (15:00)
[2021-11-26] MEDS ORDERED: OMEP40CA20 MT (15:38)
[2021-11-26] MEDS ORDERED: SUCR1ORA15 PO (15:38)
[2021-11-26] MEDS ORDERED: LABETALOL 5MG/ML SYR 20 MG/4 ML SYRINGE IV NR (16:00)
[2021-11-26] MEDS: SUCRALFATE 1 G/10 ML UDC PO SCH ×2 (16:29→21:38)
[2021-11-26 20:00] VITALS: BP 162/101
[2021-11-26] MEDS: HYDROCODONE/ACETAMINOPHEN 5/325MG TABLET PO PRN (21:36)
[2021-11-26] MEDS: LEVOFLOXACIN 500MG PREMIX 100 ML IV SCH (21:36)
[2021-11-27] VITALS: BP 170/90
[2021-11-27 04:00] VITALS: BP 179/101
[2021-11-27] MEDS ORDERED: MORPHINE SULFATE 2 MG/ML CPJ (NOT FOR IM USE) IV NR (04:15)
[2021-11-27 04:16] VITALS: BP 170/90
[2021-11-27] MEDS: HYDRALAZINE HCL 100MG TABLET PO SCH (06:07)
== END 2021-11-27 06:28 | disposition left against medical advice (07) | DRG 720 ==
LOC: ER 09:56 → ENRESERV 16:30 → 6EST 17:10
PROVIDERS: ADMIT Internal Medicine; ATTEND Internal Medicine
PROC: 0DB78ZX Excision of Stomach, Pylorus, Via Natural or Artificial Opening Endoscopic, Diagnostic (ICD-10-PCS; principal; 2021-11-26)
PROC: 0JBR0ZZ Excision of Left Foot Subcutaneous Tissue and Fascia, Open Approach (ICD-10-PCS; 2021-11-26)
PROC: 0JBQ0ZZ Excision of Right Foot Subcutaneous Tissue and Fascia, Open Approach (ICD-10-PCS; 2021-11-26)
DX: A41.9 Sepsis, unspecified organism (principal); K22.11 Ulcer of esophagus with bleeding; K29.71 Gastritis, unspecified, with bleeding; E11.51 Type 2 diabetes mellitus with diabetic peripheral angiopathy without gangrene; E87.1 Hypo-osmolality and hyponatremia; E11.628 Type 2 diabetes mellitus with other skin complications; E87.8 Other disorders of electrolyte and fluid balance, not elsewhere classified; E11.65 Type 2 diabetes mellitus with hyperglycemia; I10 Essential (primary) hypertension; F12.90 Cannabis use, unspecified, uncomplicated; E78.5 Hyperlipidemia, unspecified; N40.0 Benign prostatic hyperplasia without lower urinary tract symptoms; Z20.822 Contact with and (suspected) exposure to COVID-19; K21.9 Gastro-esophageal reflux disease without esophagitis; E87.6 Hypokalemia; F41.9 Anxiety disorder, unspecified; Z53.29 Procedure and treatment not carried out because of patient's decision for other reasons; I16.0 Hypertensive urgency; K52.9 Noninfective gastroenteritis and colitis, unspecified; Z82.49 Family history of ischemic heart disease and other diseases of the circulatory system; Z83.3 Family history of diabetes mellitus; Z90.49 Acquired absence of other specified parts of digestive tract; Z95.5 Presence of coronary angioplasty implant and graft
CPT/HCPCS: 36415; 71045; 74176; 80048; 80053; 80320; 82962; 83036; 83605; 83880; 84484; 85025; 85027; 87426; 88305; 93005; 99285; C1893; C9113; J0696; J1100; J1630; J1815; J1956; J2250; J2270; J2370; J2405; J2704; J2765; J3010; J3490; J7030; Q0161; G0480

== ENCOUNTER 2022-06-15 04:14 | Emergency (ER) | payer MEDICAID ==
[~2022-06-15] VITALS: Ht 188 cm; Wt 77.0 kg
[~2022-06-15 04:14] MED LIST changes: +ACET-2708 MT; +METO-293 MT; +OMEP40CA20 MT; +SUCR1ORA15 PO; +SULF1TAB48 MT
[2022-06-15] MEDS ORDERED: KETOROLAC 30MG/ML VIAL IV STA (06:25)
[2022-06-15] MEDS ORDERED: ONDANSETRON HCL 4MG/2ML INJ IV STA (06:25)
[2022-06-15] MEDS ORDERED: SODIUM CHLORIDE 0.9% 1,000 ML IV ONE (06:30)
[2022-06-15 06:43] LABS: BASOPHILS % 0.3 % (0.0-2.0); EOSINOPHILS % 0.5 % (0.0-5.0); HEMOGLOBIN. 13.5 g/dL (14.0-18.0); LYMPHOCYTES % 10.1 % (20.0-50.0); MEAN CORPUSCULAR HEMOGLOBIN 30.8 pg (28.0-32.0); MEAN CORPUSCULAR VOLUME 93.4 fL (80.0-94.0); MEAN PLATELET VOLUME 8.6 fl (7.4-10.4); MONOCYTES % 3.3 % (2.0-8.0); NEUTROPHILS % 85.8 % (40.0-76.0); PLATELET 362 x1000/uL (130-400); RED BLOOD CELL COUNT 4.39 mill/uL (4.7-6.1); RED CELL DISTRIBUTION WIDTH 13.9 % (11.6-14.6)
[2022-06-15] MEDS ORDERED: HALOPERIDOL LACTATE 5MG/ML VIAL IM ONE (08:15)
[2022-06-15 08:26] LABS: CHLORIDE 108 mEq/L (98-107)
[2022-06-15 08:32] LABS: ETHANOL BLOOD < 10 mg/dL
[2022-06-15 08:41] LABS: CLARITY URINE CLEAR (CLEAR); COLOR URINE YELLOW (YELLOW); PROTEIN URINE 3+ (NEGATIVE); SPECIFIC GRAVITY URINE 1.015 (1.005-1.030)
[2022-06-15 08:42] LABS: KETONES URINE 1+ (NEGATIVE); LEUKOCYTE ESTERASE URINE NEGATIVE (NEGATIVE); NITRITE URINE NEGATIVE (NEGATIVE); OCCULT BLOOD URINE 1+ (NEGATIVE)
[2022-06-15 08:46] LABS: *AMPHETAMINES SCREEN URINE NEGATIVE (NEGATIVE); *BARBITURATES SCREEN URINE NEGATIVE (NEGATIVE); *BENZODIAZEPINES SCREEN URINE NEGATIVE (NEGATIVE); *COCAINE SCREEN URINE NEGATIVE (NEGATIVE); CANNABINOID URINE SCREEN PRESUMTIVE POSITIVE (NEGATIVE); METHADONE URINE SCREEN NEGATIVE (NEGATIVE); OPIATES URINE SCREEN NEGATIVE (NEGATIVE); PHENCYCLIDINE URINE SCREEN NEGATIVE (NEGATIVE)
[2022-06-15 09:20] LABS: PROTHROMBIN TIME 10.7 sec (9.6-11.0)
[2022-06-15] MEDS ORDERED: ONDA4TAB50 MT (11:01)
[2022-06-15] MEDS ORDERED: OMEP40CA20 MT (11:01)
[2022-06-15 11:55] VITALS: BP 140/90
== END 2022-06-15 12:29 | disposition home or self-care (01) ==
LOC: ER 04:14
DX: K52.9 Noninfective gastroenteritis and colitis, unspecified (principal); R10.33 Periumbilical pain; I10 Essential (primary) hypertension; E11.9 Type 2 diabetes mellitus without complications; F12.10 Cannabis abuse, uncomplicated; Z90.49 Acquired absence of other specified parts of digestive tract; Z79.84 Long term (current) use of oral hypoglycemic drugs; Z98.61 Coronary angioplasty status
CPT/HCPCS: 36415; 74176; 80053; 80305; 80320; 81003; 83690; 85025; 85610; 96361; 96372; 96374; 96375; 99284; J1630; J1885; J2405; J7030; Z7610; G0480

== ENCOUNTER 2022-12-27 11:27 | Emergency (ER) | payer MEDICAID ==
[~2022-12-27] VITALS: Ht 188 cm; Wt 100.0 kg
[~2022-12-27 11:27] MED LIST changes: -ACET-2708 MT; +AMLO10TA80 PO; -CLON0.2T MT; +GABA-532 PO; +HYDR-4135 PO; -OMEP40CA20 MT; +SERT25TA74 PO; -SULF1TAB48 MT
[2022-12-27] MEDS ORDERED: METOCLOPRAMIDE HCL 10MG TABLET PO ONE (12:45)
[2022-12-27] MEDS ORDERED: ACETAMINOPHEN 325MG TABLET PO ONE (12:45)
[2022-12-27] MEDS ORDERED: LORAZEPAM 1MG TABLET PO ONE (13:00)
[2022-12-27] MEDS ORDERED: SODIUM CHLORIDE 0.9% 1,000 ML IV ONE (13:00)
[2022-12-27] MEDS ORDERED: HALOPERIDOL LACTATE 5MG/ML VIAL IM ONE (13:00)
[2022-12-27 15:24] LABS: HEMATOCRIT. 44.1 % (42.0-52.0); HEMOGLOBIN. 14.8 g/dL (14.0-18.0); MEAN CORPUSCULAR HEMOGLOBIN 31.5 pg (28.0-32.0); MEAN CORPUSCULAR VOLUME 93.9 fL (80.0-94.0); MEAN PLATELET VOLUME 8.1 fl (7.4-10.4); PLATELET 311 x1000/uL (130-400); RED BLOOD CELL COUNT 4.69 mill/uL (4.7-6.1); RED CELL DISTRIBUTION WIDTH 14.5 % (11.6-14.6)
[2022-12-27 15:40] LABS: CHLORIDE 104 mEq/L (98-107)
[2022-12-27 15:50] LABS: ETHANOL BLOOD < 10 mg/dL (-10)
[2022-12-27] MEDS ORDERED: PROT40 MT (17:13)
[2022-12-27] MEDS ORDERED: ONDA4TAB50 MT (17:13)
[2022-12-27 17:14] LABS: PLATELET ESTIMATE NORMAL
[2022-12-28 00:29] VITALS: BP 130/87
== END 2022-12-28 00:31 | disposition home or self-care (01) ==
LOC: ER 11:27
DX: K29.70 Gastritis, unspecified, without bleeding (principal); R11.2 Nausea with vomiting, unspecified; E11.22 Type 2 diabetes mellitus with diabetic chronic kidney disease; I12.0 Hypertensive chronic kidney disease with stage 5 chronic kidney disease or end stage renal disease; N18.6 End stage renal disease
CPT/HCPCS: 36415; 80053; 80307; 80320; 80329; 85025; 96372; 99283; J1630; J7030; G0480

== ENCOUNTER 2022-12-30 08:29 | Emergency (ER) | payer MEDICAID ==
[~2022-12-30] VITALS: Ht 185.4 cm; Wt 91.0 kg
[~2022-12-30 08:29] MED LIST changes: +ONDA4TAB50 MT; +PROT40 MT
[2022-12-30 08:32] VITALS: BP 190/128
[2022-12-30] MEDS ORDERED: ACETAMINOPHEN 325MG TABLET PO ONE (08:45)
[2022-12-30 09:17] LABS: HEMATOCRIT. 43.2 % (42.0-52.0); HEMOGLOBIN. 14.3 g/dL (14.0-18.0); MEAN CORPUSCULAR HEMOGLOBIN 31.1 pg (28.0-32.0); MEAN CORPUSCULAR VOLUME 93.9 fL (80.0-94.0); MEAN PLATELET VOLUME 8.6 fl (7.4-10.4); PLATELET 267 x1000/uL (130-400); RED CELL DISTRIBUTION WIDTH 14.2 % (11.6-14.6)
[2022-12-30 09:27] LABS: CHLORIDE 98 mEq/L (98-107)
[2022-12-30 10:25] LABS: PLATELET ESTIMATE NORMAL
[2022-12-30] MEDS ORDERED: METO5TAB86 PO (10:32)
[2022-12-30] MEDS ORDERED: TOPUD PO (10:32)
== END 2022-12-30 10:51 | disposition home or self-care (01) ==
LOC: ER 08:29
DX: B34.9 Viral infection, unspecified (principal); E11.9 Type 2 diabetes mellitus without complications; I10 Essential (primary) hypertension; Z90.49 Acquired absence of other specified parts of digestive tract; Z79.899 Other long term (current) drug therapy; Z20.822 Contact with and (suspected) exposure to COVID-19
CPT/HCPCS: 36415; 71045; 80053; 85025; 87426; 99284; C9803

== ENCOUNTER 2023-05-31 20:51 | Emergency (ER) | payer MEDICAID, OTHER ==
[~2023-05-31] VITALS: Ht 188 cm; Wt 104.0 kg
[~2023-05-31 20:51] MED LIST changes: +METO5TAB86 PO; +TOPUD PO
[2023-05-31 21:20] LABS: CLARITY URINE CLEAR (CLEAR); COLOR URINE YELLOW (YELLOW); GLUCOSE URINE NEGATIVE (NEGATIVE); KETONES URINE TRACE (NEGATIVE); LEUKOCYTE ESTERASE URINE NEGATIVE (NEGATIVE); NITRITE URINE NEGATIVE (NEGATIVE); OCCULT BLOOD URINE 2+ (NEGATIVE); PH URINE 7.5 (4.5-8.0); PROTEIN URINE 4+ (NEGATIVE); SPECIFIC GRAVITY URINE 1.015 (1.005-1.030)
[2023-05-31 21:22] LABS: BACTERIA URINE NONE SEEN; RBC URINE 50-100 /hpf (0-2); SQUAMOUS EPITHELIAL CELL URINE 1+ /lpf (RARE/1+); YEAST URINE NONE SEEN
[2023-05-31 21:46] VITALS: BP 175/88; PULSE 125; RESP 18; TEMP 98.3; O2SAT 98
[2023-05-31] MEDS ORDERED: NITR-87 MT (21:53)
== END 2023-05-31 22:03 | disposition home or self-care (01) ==
LOC: ER 20:51
DX: N30.90 Cystitis, unspecified without hematuria (principal); Z79.899 Other long term (current) drug therapy
CPT/HCPCS: 81003; 99283

== ENCOUNTER 2023-11-24 12:45 | Emergency (ER) | payer MEDICAID ==
[~2023-11-24] VITALS: Ht 182.9 cm; Wt 95.0 kg
[~2023-11-24 12:45] MED LIST changes: -HYDR-4135 PO; +HYDR50TA39 PO; +NITR-87 MT
[2023-11-24 12:48] VITALS: TEMP 97.8; O2SAT 95
[2023-11-24 14:21] LABS: BASOPHILS % 0.5 % (0.0-2.0); EOSINOPHILS % 1.3 % (0.0-5.0); HEMATOCRIT. 38.5 % (42.0-52.0); MEAN CORPUSCULAR HEMOGLOBIN 32.2 pg (28.0-32.0); MEAN CORPUSCULAR HGB CONC 33.8 g/dL (31.0-37.0); MEAN CORPUSCULAR VOLUME 95.1 fL (80.0-94.0); MEAN PLATELET VOLUME 8.3 fl (7.4-10.4); MONOCYTES % 5.5 % (2.0-8.0); NEUTROPHILS % 75.7 % (40.0-76.0); PLATELET 210 x1000/uL (130-400); RED BLOOD CELL COUNT 4.05 mill/uL (4.7-6.1); RED CELL DISTRIBUTION WIDTH 13.8 % (11.6-14.6); WHITE BLOOD COUNT 7.9 x1000/uL (4.5-11.0)
[2023-11-24 14:27] LABS: CARBON DIOXIDE 22 mEq/L (21-32); CHLORIDE 111 mEq/L (98-107); POTASSIUM 4.2 mEq/L (3.5-5.1); SODIUM 139 mEq/L (136-145)
[2023-11-24 14:28] LABS: CALCIUM 8.9 mg/dL (8.7-10.4)
[2023-11-24 14:33] LABS: CREATININE 2.1 mg/dL (0.6-1.3); GLUCOSE 105 mg/dL (70-105); UREA NITROGEN BLOOD 26 mg/dL (9-23)
[2023-11-24 14:34] LABS: ALANINE AMINOTRANSFERASE < 7 IU/L (10-49)
[2023-11-24 14:35] LABS: ALBUMIN 3.9 g/dL (3.2-4.8); ASPARTATE AMINOTRANSFERASE 14 IU/L (<34); BILIRUBIN TOTAL 0.4 mg/dL (0.1-1.0); PROTEIN TOTAL 6.8 g/dL (6.0-8.3)
[2023-11-24 14:39] LABS: ETHANOL BLOOD < 10 mg/dL (<10)
[2023-11-24 15:00] VITALS: BP 155/78; PULSE 82; RESP 17
== END 2023-11-24 15:39 | disposition home or self-care (01) ==
LOC: ER 12:45
DX: R56.9 Unspecified convulsions (principal); I10 Essential (primary) hypertension; Z79.899 Other long term (current) drug therapy
CPT/HCPCS: 80053; 80320; 85025; 36415; 70450; 93005; 99284; Z7610 ×4; G0480

== ENCOUNTER 2024-04-27 09:08 | Emergency (ER) | payer MEDICAID ==
[~2024-04-27] VITALS: Ht 182.9 cm; Wt 100.0 kg
[2024-04-27 09:13] VITALS: O2SAT 100
[2024-04-27 11:33] VITALS: TEMP 37.11408
[2024-04-27] MEDS: LORAZEPAM 2MG/ML INJ IV ONE (11:40)
[2024-04-27 11:52] VITALS: TEMP 98.8
[2024-04-27] MEDS: ONDANSETRON 4MG ODT PO PRN (11:52)
[2024-04-27] MEDS: ACETAMINOPHEN 325MG TABLET PO PRN (11:52)
[2024-04-27] MEDS: CLONIDINE 0.1MG TABLET PO PRN (11:52)
[2024-04-27] MEDS: SODIUM CHLORIDE 0.9% 500 ML IV ONE (11:53)
[2024-04-27 12:08] LABS: BASOPHILS % 0.5 % (0.0-2.0); EOSINOPHILS % 0.3 % (0.0-5.0); HEMATOCRIT. 42.4 % (42.0-52.0); HEMOGLOBIN. 13.8 g/dL (14.0-18.0); MEAN CORPUSCULAR HEMOGLOBIN 31.1 pg (28.0-32.0); MEAN CORPUSCULAR HGB CONC 32.6 g/dL (31.0-37.0); MEAN CORPUSCULAR VOLUME 95.2 fL (80.0-94.0); MEAN PLATELET VOLUME 8.2 fl (7.4-10.4); MONOCYTES % 3.3 % (2.0-8.0); NEUTROPHILS % 82.9 % (40.0-76.0); PLATELET 210 x1000/uL (130-400); RED BLOOD CELL COUNT 4.45 mill/uL (4.7-6.1); RED CELL DISTRIBUTION WIDTH 14.2 % (11.6-14.6); WHITE BLOOD COUNT 7.2 x1000/uL (4.5-11.0)
[2024-04-27 12:14] LABS: CHLORIDE 107 mEq/L (98-107); POTASSIUM 3.7 mEq/L (3.5-5.1); SODIUM 141 mEq/L (136-145)
[2024-04-27 12:15] LABS: CARBON DIOXIDE 29 mEq/L (21-32)
[2024-04-27 12:16] LABS: CALCIUM 9.6 mg/dL (8.7-10.4)
[2024-04-27] MEDS: LEVETIRACETAM 500MG PREMIX 100 ML IV ONE ×2 (12:18→12:19)
[2024-04-27 12:20] LABS: CREATININE 1.7 mg/dL (0.6-1.3); GLUCOSE 125 mg/dL (70-105); UREA NITROGEN BLOOD 10 mg/dL (9-23)
[2024-04-27 12:24] LABS: CREATINE KINASE 121 IU/L (46-171)
[2024-04-27 12:25] LABS: ETHANOL BLOOD < 10 mg/dL (<10); TROPONIN I HIGH SENSITIVITY 59 ng/L (3.0-53)
[2024-04-27] MEDS ORDERED: ASPI-986 MT (14:09)
[2024-04-27] MEDS ORDERED: KEPP500 MT (14:09)
[2024-04-27 15:17] VITALS: BP 158/91; PULSE 91; RESP 22; O2SAT 100
== END 2024-04-27 15:21 | disposition home or self-care (01) ==
LOC: ER 09:08
DX: G40.909 Epilepsy, unspecified, not intractable, without status epilepticus (principal); I10 Essential (primary) hypertension; F19.90 Other psychoactive substance use, unspecified, uncomplicated; Z79.899 Other long term (current) drug therapy
CPT/HCPCS: 80048; 80320; 82550; 85025; 84484; 36415; 70450; 96365; 96375; 99285; Q0162; J1953; J2060; G0480